=== PATIENT | female | born 1935 | race Caucasian/White ===

== ENCOUNTER 2017-06-16 19:26 | Inpatient (IN) | payer OTHER ==
[~2017-06-16] VITALS: Ht 160 cm; Wt 100.0 kg
[~2017-06-16 19:26] MED LIST: ASPI-676 PO; BENA40TA41 PO; FURO40TA4 PO; GLIP-95 PO; METO-448 PO; PANT40TA3 PO; PRAV20TA63 PO; SITA50TA2 PO
[2017-06-16] MEDS ORDERED: ONDANSETRON 4 MG INJ IV STA ×2 (20:17→23:22)
[2017-06-16] MEDS ORDERED: HYDROmorphONE 1 MG/ML SYG IV STA ×2 (20:17→23:22)
--- NOTE | 2017-06-16 20:24 | ERA ---
ER Documentation Chief Complaint Date/Time DATE: 06/16/17 TIME: 20:21 Chief Complaint L leg pain s/p mechanical fall yesterday, unable to bear weight HPI This is an 81-year-old female who fell at 2 AM when she was getting up to go to the bathroom. She says her left leg gave out and she fell onto her left hip. Denies any syncope or loss of consciousness denies headache or neck pain. She has a roommate that helped her get back into bed. She is unable to bear weight or walk today. She says the pain is sharp located in the left hip and worse with movement. Denies any abdominal pain chest pain or other injuries. ROS All systems reviewed and are negative except as per history of present illness. Medications Home Meds Reported Medications Benazepril Hcl* (Benazepril Hcl*) 40 Mg Tablet, 40 MG PO DAILY 01/13/13 Pravastatin Sodium* (Pravastatin Sodium*) 20 Mg Tablet, 20 MG PO DAILY 01/13/13 Sitagliptin* (Januvia*) 50 Mg Tablet, 50 MG PO HS 01/13/13 Aspirin (Aron Child) 81 Mg Chew, 81 MG PO DAILY 01/13/13 Metoprolol Tartrate* (Lopressor*) 25 Mg Tab, 25 MG PO DAILY 01/13/13 Furosemide (Lasix) 40 Mg Tab, 40 MG PO DAILY 01/13/13 Pantoprazole* (Protonix*) 40 Mg Tablet.dr, 40 MG PO DAILY 01/13/13 Glipizide* (Glipizide*) 10 Mg Tablet, 10 MG PO BID 01/13/13 Allergies Allergies: Coded Allergies: No Known Allergy (Unverified , 01/13/13) PMhx/Soc History of Surgery: No Anesthesia Reaction: No Hx Neurological Disorder: No Hx Respiratory Disorders: No Hx Cardiac Disorders: No Hx Psychiatric Problems: No Hx Miscellaneous Medical Probl: No Hx Alcohol Use: No Hx Substance Use: No Hx Tobacco Use: No FmHx Family History: No coronary disease Physical Exam Vitals Vital Signs Date Time Temp Pulse Resp B/P Pulse Ox O2 Delivery O2 Flow Rate FiO2 06/16/17 22:02 98.2 94 20 164/88 96 Nasal Cannula 2.0 06/16/17 19:32 98.4 105 18 113/59 98 Physical Exam Const: Well-developed, well-nourished Head: Atraumatic, normocephalic Eyes: Normal Conjunctiva, PERRLA, EOMI, normal sclera, no nystagmus ENT: Normal External Ears, Nose and Mouth, moist mucus membranes. Neck: Full range of motion. No meningismus, no lymphadenopathy. Resp: Clear to auscultation bilaterally, no wheezing, rhonchi, rales Cardio: Regular rate and rhythm, no murmurs, S1 S2 present Abd: Soft, non tender x 4, non distended. Normal bowel sounds, no guarding or rebound, no pulsitile abdominal masses or bruits Skin: No petechiae or rashes, no ecchymosis , no maculopapular rash Back: No midline or flank tenderness Ext: No cyanosis, or edema, FROM x 3, there is moderate to severe pain in the left hip with any attempted range of motion the left leg is shortened and externally rotated normal inspection, neurovascularly intact x 4 Neur: Awake and alert, STR 5/5 x 4, sensation intact x 4, no focal findings, cerebellum intact Psych: Normal Mood and Affect Result Diagram: 06/16/17 2100 06/16/17 2100 Results 24 hrs Laboratory Tests Test 06/16/17 21:00 White Blood Count 12.610^3/ul Red Blood Count 4.0510^6/ul Hemoglobin 12.0g/dl Hematocrit 36.9% Mean Corpuscular Volume 91.1fl Mean Corpuscular Hemoglobin 29.6pg Mean Corpuscular Hemoglobin Concent 32.5g/dl Red Cell Distribution Width 14.1% Platelet Count 10004^3/UL Mean Platelet Volume 10.6fl Neutrophils % 82.6% Lymphocytes % 8.6% Monocytes % 7.9% Eosinophils % 0.0% Basophils % 0.4% Nucleated Red Blood Cells % 0.0/100WBC Neutrophils # (Manual) 10.410^3/ul Lymphocytes # 1.110^3/ul Monocytes # 1.010^3/ul Eosinophils # 0.010^3/ul Basophils # 0.110^3/ul Nucleated Red Blood Cells # 0.010^3/ul Prothrombin Time 19.2Sec Prothrombin Time Ratio 1.5 INR International Normalized Ratio 1.60 Activated Partial Thromboplast Time 24.1Sec Sodium Level 141mmol/L Potassium Level 4.1mmol/L Chloride Level 104mmol/L Carbon Dioxide Level 25mmol/L Anion Gap 16 Blood Urea Nitrogen 24mg/dl Creatinine 2.06mg/dl Glucose Level 112mg/dl Calcium Level 8.8mg/dl Current Medications Medications (Trade) Dose Ordered Sig/Raghavendra Route PRN Reason Start Time Stop Time Status Last Admin Dose Admin Hydromorphone HCl (Dilaudid) 1 mg ONCE STAT IV 06/16/17 20:17 06/16/17 20:19 DC 06/16/17 21:14 Ondansetron HCl (Zofran Inj) 4 mg ONCE STAT IV 06/16/17 20:17 06/16/17 20:19 DC 06/16/17 21:14 Procedures/MDM PROCEDURE: XR Chest. CLINICAL INDICATION: Trauma, pain TECHNIQUE: Single frontal view of the chest was obtained COMPARISON: 01/13/2013 FINDINGS: There is hypoinflation of the lungs. This along with portable AP technique accentuates the size of the cardiomediastinal silhouette. The patient is mildly rotated to the left. Ectasia and tortuosity of the thoracic aorta is again apparent. Calcification in the aortic arch. Enlargement of the cardiac silhouette is again seen. There is minimal prominence of the lung interstitium likely minimal chronic changes.. There is bibasilar atelectasis. ECG leads projected over the chest. No definite pneumothorax or pleural effusion is seen. IMPRESSION: Hypoinflation lungs and bibasilar atelectasis. Enlargement of cardiac silhouette again seen. Please see above. RPTAT: HJES .Byron Hendricks MD, MD Date Time Electronically viewed and signed by .Byron Hendricks MD, MD on 06/16/2017 21:37 .S/ CC: CHELSEA GALINDO DO PROCEDURE: XR Hip. CLINICAL INDICATION: Trauma to the left hip. TECHNIQUE: AP and frog lateral views of the left hip were performed. COMPARISON: None. FINDINGS: Comminuted intratrochanteric fracture of the left hip. The soft tissues are unremarkable. IMPRESSION: Comminuted intertrochanteric fracture left hip. RPTAT: [facility] Soraida Schilling Physician Date Time Electronically viewed and signed by Soraida Schilling Physician on 06/16/2017 21:15 RS/ CC: CHELSEA GALINDO DO Patient has a fractured left hip. I paged Dr. Hobbs who is on-call for orthopedics. Will admit to panel for surgical clearance EKG: Rate/Rhythm: Normal sinus rhythm with premature supraventricular complexes QRS, ST, QT: NORMAL CT, QRS, QT] Impression: NORMAL EKG Departure Diagnosis: Primary Impression: Hip fracture, left Qualified Code: S72.002A - Closed fracture of left hip, initial encounter Condition: Stable CHELSEA GALINDO DO Jun 16, 2017 20:24
--- NOTE | 2017-06-16 21:15 | RADRPT ---
PROCEDURE: XR Hip. CLINICAL INDICATION: Trauma to the left hip. TECHNIQUE: AP and frog lateral views of the left hip were performed. COMPARISON: None. FINDINGS: Comminuted intratrochanteric fracture of the left hip. The soft tissues are unremarkable. IMPRESSION: Comminuted intertrochanteric fracture left hip. RPTAT: [facility] Physician Nick Date Time Electronically viewed and signed by Physician Nick on 06/16/2017 21:15 RS/
[2017-06-16 21:17] LABS: BASOPHIL # 0.1 10^3/ul (0.0-0.1); BASOPHILS % 0.4 % (0.0-2.0); HEMATOCRIT 36.9 % (37.0-47.0); LYMPHOCYTES # 1.1 10^3/ul (0.8-2.9); LYMPHOCYTES % 8.6 % (15.0-51.0); MEAN CORPUSCULAR HEMOGLOBIN 29.6 pg (29.0-33.0); MEAN CORPUSCULAR HGB CONC 32.5 g/dl (32.0-37.0); MEAN CORPUSCULAR VOLUME 91.1 fl (82.0-101.0); MEAN PLATELET VOLUME 10.6 fl (7.4-10.4); MONOCYTES % 7.9 % (0.0-11.0); NEUTROPHILS % 82.6 % (39.0-77.0); PLATELET COUNT 207 10^3/UL (140-415); RED BLOOD COUNT 4.05 10^6/ul (4.20-5.40); RED CELL DISTRIBUTION WIDTH 14.1 % (11.5-14.5); WHITE BLOOD COUNT 12.6 10^3/ul (4.8-10.8)
[2017-06-16 21:33] LABS: INR 1.6; PARTIAL THROMBOPLASTIN TIME 24.1 Sec (25.0-35.0); PROTIME 19.2 Sec (12.2-14.2); PT RATIO 1.5
[2017-06-16 21:35] LABS: CALCIUM 8.8 mg/dl (8.4-10.2); CREATININE 2.06 mg/dl (0.44-1.00); POTASSIUM 4.1 mmol/L (3.5-5.1)
--- NOTE | 2017-06-16 21:37 | RADRPT ---
PROCEDURE: XR Chest. CLINICAL INDICATION: Trauma, pain TECHNIQUE: Single frontal view of the chest was obtained COMPARISON: 01/13/2013 FINDINGS: There is hypoinflation of the lungs. This along with portable AP technique accentuates the size of the cardiomediastinal silhouette. The patient is mildly rotated to the left. Ectasia and tortuosit y of the thoracic aorta is again apparent. Calcification in the aortic arch. Enlargement of the ca rdiac silhouette is again seen. There is minimal prominence of the lung interstitium likely minimal chronic changes.. There is bibasilar atelectasis. ECG leads projected over the chest. No definite pneumothorax or pleural effusion is seen. IMPRESSION: Hypoinflation lungs and bibasilar atelectasis. Enlargement of cardiac silhouette again seen. Pleas e see above. RPTAT: HJES .Byron Hendricks MD, Date Time Electronically viewed and signed by .Byron Hendricks MD, on 06/16/2017 21:37 .S/
[2017-06-16] MEDS ORDERED: SOD CHLORIDE 0.9% 1,000 ML IV SCH (22:14)
[2017-06-16] MEDS ORDERED: ACETAMINOPHEN 325 MG TAB PO PRN (22:30)
[2017-06-16] MEDS ORDERED: ONDANSETRON 4 MG INJ IV PRN (22:30)
[2017-06-16 23:18] VITALS: TEMP 98.1
[2017-06-17 00:26] VITALS: BP 135/61; RESP 16
[2017-06-17 00:40] VITALS: Ht 160 cm; Wt 100.0 kg
[2017-06-17] MEDS ORDERED: ONDANSETRON 4 MG INJ IV PRN (01:00)
[2017-06-17] MEDS ORDERED: ACETAMINOPHEN 325 MG TAB PO PRN (01:00)
[2017-06-17] MEDS ORDERED: ACCU-CHEK XX SCH ×3 (02:00)
[2017-06-17 02:09] VITALS: BP 142/73; RESP 16
[2017-06-17 04:28] VITALS: BP 107/57; PULSE 53; RESP 20
[2017-06-17] MEDS: morphine 4 MG/ML VIAL IV PRN ×3 (04:32→12:42)
[2017-06-17] MEDS: PANTOPRAZOLE (EC) 40 MG TAB PO SCH (06:12)
[2017-06-17 07:48] VITALS: BP 152/67; RESP 18
[2017-06-17] MEDS: INSULIN ASPART [NOVOLOG] 3 ML PEN SC SCH ×4 (07:50→20:38)
[2017-06-17] MEDS ORDERED: INSULIN GLARGINE [LANtus] 3 ML PEN SC SCH ×2 (08:00)
[2017-06-17] MEDS: FUROSEMIDE 40 MG TAB PO SCH (08:24)
[2017-06-17] MEDS: METOPROLOL 25 MG TAB PO SCH (08:25)
[2017-06-17] MEDS: BENAZEPRIL 40 MG TAB PO SCH (08:25)
--- NOTE | 2017-06-17 09:00 | HP ---
Date/Time of Note Date/Time of Note DATE: 06/17/17 TIME: 08:56 Assessment/Plan VTE Prophylaxis VTE Prophylaxis Intervention: SCD's Lines/Catheters IV Catheter Type (from Nrs): Saline Lock Assessment/Plan Assessment/Plan 1. Left hip fracture, status post mechanical fall -Pain management -Awaiting orthopedic evaluation -Physical therapy when cleared by Ortho 2. Hypertension -Continue meds with adjustment as needed 3. Diabetes -Insulin while in-house his adjustment as needed 4. CKD -Monitor kidney function closely and avoid nephrotoxins 5. Dyslipidemia -Continue statin HPI/ROS Admit Date/Time Admit Date/Time Jun 16, 2017 at 22:16 Hx of Present Illness This is an 81-year-old female with a history of hypertension, diabetes, dyslipidemia, CKD who presented to the emergency department for left hip pain. Patient had a ground-level fall and when she came in the ER she was found to have a left hip fracture. Initial vitals were within normal limits. Labs shows a creatinine of 2, otherwise basic labs within acceptable range. Chest x- ray with bibasilar atelectasis. . PMH/Family/Social Past Medical History Medical History: diabetes, high cholesterol, hypertension, renal disease Social History Alcohol Use: none Smoking Status: Never smoker Drug Use: none Exam/Review of Systems Vital Signs Vitals Vital Signs Date Time Temp Pulse Resp B/P Pulse Ox O2 Delivery O2 Flow Rate FiO2 06/17/17 07:48 97.8 80 18 152/67 96 06/17/17 04:28 Room Air 06/16/17 23:18 2.0 Intake and Output 06/16/17 06/16/17 06/17/17 15:00 23:00 07:00 Intake Total 700 ml Balance 700 ml Exam Constitutional: other (No acute distress) Head: atraumatic, normocephalic Eyes: EOMI, PERRL Respiratory: clear to auscultation, normal air movement Cardiovascular: nl pulses, regular rate and rhythm Gastrointestinal: non-tender, soft Musculoskeletal: other (Left hip tenderness) Extremities: normal pulses Labs Result Diagram: 06/16/17 2100 06/16/17 2100 Medications Medications Current Medications Sodium Chloride (NS) 1,000 ml @ 80 mls/hr [id number] IV ; Start 06/16/17 at 22:14; Stop 06/17/17 at 10:43 Benazepril HCl (Lotensin) 40 mg DAILY PO Last administered on 06/17/17 08:25; Admin Dose 40 MG; Start 06/17/17 at 09:00 Furosemide (Lasix) 40 mg DAILY PO Last administered on 06/17/17 08:24; Admin Dose 40 MG; Start 06/17/17 at 09:00 Metoprolol Tartrate (Lopressor) 25 mg DAILY PO Last administered on 06/17/17 08 :25; Admin Dose 25 MG; Start 06/17/17 at 09:00 Pantoprazole (Protonix Tab) 40 mg DAILY@06 PO Last administered on 06/17/17 06: 12; Admin Dose 40 MG; Start 06/17/17 at 06:00 Atorvastatin Calcium (Lipitor) 20 mg HS PO ; Start 06/17/17 at 21:00 Morphine Sulfate (morphine) 3 mg Q4H PRN IV PAIN LEVEL 6-10 Last administered on 06/17/17 08:21; Admin Dose 3 MG; Start 06/17/17 at 01:00 Ondansetron HCl (Zofran Inj) 4 mg Q6H PRN IV NAUSEA AND/OR VOMITING; Start 06/17 at 01:00 Acetaminophen (Tylenol Tab) 650 mg Q6H PRN PO PAIN AND OR ELEVATED TEMP; Start 06/17/17 at 01:00 Insulin Glargine (Lantus) 10 unit DAILY@08 SC ; Start 06/17/17 at 08:00 Diagnostic Test (Pha) (Accu-Chek) 1 ea 02 XX Last administered on 06/17/17 02: 00; Admin Dose 1 EA; Start 06/17/17 at 02:00 Diagnostic Test (Pha) (Accu-Chek) 1 ea 02 XX Last administered on 06/17/17 02: 00; Admin Dose 1 EA; Start 06/17/17 at 02:00 DESI JACK MD Jun 17, 2017 09:00
--- NOTE | 2017-06-17 15:24 | PN ---
Date/Time of Note Date/Time of Note DATE: 06/17/17 TIME: 15:16 Assessment/Plan VTE Prophylaxis VTE Prophylaxis Intervention: SCD's Lines/Catheters IV Catheter Type (from Nrsg): Saline Lock Assessment/Plan Assessment/Plan 81 yo F with pmhx DM2, CKD here for L hip pain following mechanical fall at home found to have a comminuted intertrochanteric fracture of her left hip. PLAN #Hip fracture: ortho to see Given pt's excellent preoperative functional status, no compelling indication for further preoperative testing for this intermediate risk surgical intervention #CKD, DM2, HTN: cut home lantus in half in case pt made NPO for procedure DVT prophx PT eval pending ortho eval Subjective 24 Hr Interval Summary Free Text/Dictation Pt states she has never had a heart attack or stroke and has no known CHF. States she is able to climb a flight of stairs without stopping and can walk several blocks (or was able to prior to this hip fracture) Exam/Review of Systems Vital Signs Vitals Vital Signs Date Time Temp Pulse Resp B/P Pulse Ox O2 Delivery O2 Flow Rate FiO2 06/17/17 07:48 97.8 80 18 152/67 96 06/17/17 04:28 Room Air 06/16/17 23:18 2.0 Intake and Output 06/16/17 06/16/17 06/17/17 14:59 22:59 06:59 Intake Total 700 ml Balance 700 ml Exam nad no mrg lungs clear abd soft no rashes Results Result Diagram: 06/16/17 2100 06/16/17 2100 Results 24 hrs Laboratory Tests Test 06/16/17 21:00 06/17/17 01:33 06/17/17 08:06 06/17/17 12:46 White Blood Count 12.6 H Red Blood Count 4.05 L Hemoglobin 12.0 Hematocrit 36.9 L Mean Corpuscular Volume 91.1 Mean Corpuscular Hemoglobin 29.6 Mean Corpuscular Hemoglobin Concent 32.5 Red Cell Distribution Width 14.1 Platelet Count 207 Mean Platelet Volume 10.6 H Neutrophils % 82.6 H Lymphocytes % 8.6 L Monocytes % 7.9 Eosinophils % 0.0 Basophils % 0.4 Nucleated Red Blood Cells % 0.0 Neutrophils # (Manual) 10.4 H Lymphocytes # 1.1 Monocytes # 1.0 H Eosinophils # 0.0 Basophils # 0.1 Nucleated Red Blood Cells # 0.0 Prothrombin Time 19.2 H Prothrombin Time Ratio 1.5 INR International Normalized Ratio 1.60 Activated Partial Thromboplast Time 24.1 L Sodium Level 141 Potassium Level 4.1 Chloride Level 104 Carbon Dioxide Level 25 Anion Gap 16 Blood Urea Nitrogen 24 H Creatinine 2.06 H Glucose Level 112 Calcium Level 8.8 Bedside Glucose 79 82 96 Medications Medications Current Medications Benazepril HCl (Lotensin) 40 mg DAILY PO Last administered on 06/17/17 08:25; Admin Dose 40 MG; Start 06/17/17 at 09:00 Furosemide (Lasix) 40 mg DAILY PO Last administered on 06/17/17 08:24; Admin Dose 40 MG; Start 06/17/17 at 09:00 Metoprolol Tartrate (Lopressor) 25 mg DAILY PO Last administered on 06/17/17 08 :25; Admin Dose 25 MG; Start 06/17/17 at 09:00 Pantoprazole (Protonix Tab) 40 mg DAILY@06 PO Last administered on 06/17/17 06: 12; Admin Dose 40 MG; Start 06/17/17 at 06:00 Atorvastatin Calcium (Lipitor) 20 mg HS PO ; Start 06/17/17 at 21:00 Morphine Sulfate (morphine) 3 mg Q4H PRN IV PAIN LEVEL 6-10 Last administered on 06/17/17 12:42; Admin Dose 3 MG; Start 06/17/17 at 01:00 Ondansetron HCl (Zofran Inj) 4 mg Q6H PRN IV NAUSEA AND/OR VOMITING; Start 06/17 at 01:00 Acetaminophen (Tylenol Tab) 650 mg Q6H PRN PO PAIN AND OR ELEVATED TEMP; Start 06/17/17 at 01:00 Insulin Glargine (Lantus) 10 unit DAILY@08 SC Last administered on 06/17/17 09: 52; Admin Dose 10 UNIT; Start 06/17/17 at 08:00 Diagnostic Test (Pha) (Accu-Chek) 1 ea 02 XX Last administered on 06/17/17 02: 00; Admin Dose 1 EA; Start 06/17/17 at 02:00 Diagnostic Test (Pha) (Accu-Chek) 1 ea XX Last administered on 06/17/17 02: 00; Admin Dose 1 EA; Start 06/17/17 at 02:00 TOYA MEJIA MD Jun 17, 2017 15:24
[2017-06-17 19:48] VITALS: BP 109/62; RESP 18
[2017-06-17] MEDS: ATORVASTATIN 20 MG TAB PO SCH (20:36)
[2017-06-17] MEDS ORDERED: GLUCAGON 1 MG INJ IM PRN (21:30)
[2017-06-17] MEDS ORDERED: DEXTROSE 50% 50 ML SYRINGE IV PRN ×2 (21:30)
[2017-06-17] MEDS ORDERED: GLUCOSE GEL 15 GRAM TUBE BUCCAL PRN (21:30)
[2017-06-17] MEDS ORDERED: GLUCOSE GEL 15 GRAM TUBE PO PRN ×2 (21:30)
[2017-06-18] VITALS (25 sets, daily range): BP systolic 80–134; BP diastolic 44–62; PULSE 62–74; RESP 13–20
[2017-06-18] MEDS: SOD CHLORIDE 0.9% 1,000 ML IV SCH ×2 (00:08→12:39)
[2017-06-18] MEDS: INSULIN ASPART [NOVOLOG] 3 ML PEN SC SCH ×6 (01:00→21:00)
--- NOTE | 2017-06-18 01:08 | CONS ---
DATE OF ADMISSION: 06/16/2017 DATE OF CONSULTATION: 06/17/2017 TYPE OF CONSULTATION: Orthopedic Surgery HISTORY OF PRESENT ILLNESS: The patient is an 81-year-old female who was admitted on 06/16/2017 when she was brought into the Emergency Room because of the painful limit of motion involving her left hip following a ground level fall. According to the patient, she was in the process of getting out of her bed when she lost her balance and fell landing on her left hip. Following the fall, she was not able to stand up or walk even though she was ambulatory sometimes with a cane and sometimes with a walker prior to the fall. PAST MEDICAL HISTORY: She is known to have history of hypertension, diabetes, dyslipidemia, and a history of chronic kidney disease. PHYSICAL EXAMINATION: My examination revealed an 81-year-old rather obese female who was not in any acute distress. She was afebrile. There was a tenderness and swelling around the left hip. Range of motion of the left hip was not tested because of the obvious pain. There was slight shortening and external rotation of the left lower extremity. There was no obvious neurovascular compromise involving the left lower extremity. DIAGNOSTIC DATA: X-rays of the left hip revealed a severely comminuted intertrochanteric fracture of the left hip which seems to be extremely unstable. DIAGNOSTIC IMPRESSION: Severely comminuted intertrochanteric fracture with subtrochanteric component, very unstable. TREATMENT PLAN: To surgery for open reduction and internal fixation at earliest convenience. Dictated By: In Sherry Hobbs MD /maximino/bill /Document#: [id number]
[2017-06-18] MEDS: PANTOPRAZOLE (EC) 40 MG TAB PO SCH (05:02)
[2017-06-18 05:32] LABS: BASOPHIL # 0.1 10^3/ul (0.0-0.1); BASOPHILS % 1.1 % (0.0-2.0); EOSINOPHILS # 0.3 10^3/ul (0.0-0.5); EOSINOPHILS % 2.8 % (0.0-7.0); HEMATOCRIT 32.8 % (37.0-47.0); LYMPHOCYTES % 19.3 % (15.0-51.0); MEAN CORPUSCULAR HEMOGLOBIN 28.6 pg (29.0-33.0); MEAN CORPUSCULAR HGB CONC 30.5 g/dl (32.0-37.0); MEAN CORPUSCULAR VOLUME 93.7 fl (82.0-101.0); MEAN PLATELET VOLUME 11.1 fl (7.4-10.4); MONOCYTE # 0.8 10^3/ul (0.3-0.9); MONOCYTES % 8.3 % (0.0-11.0); PLATELET COUNT 174 10^3/UL (140-415); RED CELL DISTRIBUTION WIDTH 14.3 % (11.5-14.5); WHITE BLOOD COUNT 10.1 10^3/ul (4.8-10.8)
[2017-06-18 05:47] LABS: CREATININE 3.32 mg/dl (0.44-1.00); POTASSIUM 4.8 mmol/L (3.5-5.1)
[2017-06-18 05:54] LABS: INR 1.03; PROTIME 13.5 Sec (12.2-14.2); PT RATIO 1.1
[2017-06-18] MEDS: FUROSEMIDE 40 MG TAB PO SCH (09:00)
[2017-06-18] MEDS: METOPROLOL 25 MG TAB PO SCH (09:56)
[2017-06-18] MEDS: BENAZEPRIL 40 MG TAB PO SCH (09:57)
[2017-06-18] MEDS: INSULIN GLARGINE [LANtus] 3 ML PEN SC SCH (10:01)
--- NOTE | 2017-06-18 15:58 | PN ---
Date/Time of Note Date/Time of Note DATE: 06/18/17 TIME: 15:57 Assessment/Plan VTE Prophylaxis VTE Prophylaxis Intervention: SCD's Lines/Catheters IV Catheter Type (from Nrsg): Peripheral IV Assessment/Plan Assessment/Plan 81 yo F with pmhx DM2, CKD here for L hip pain following mechanical fall at home found to have a comminuted intertrochanteric fracture of her left hip. PLAN #Hip fracture: to OR tonight #MARIANA on CKD: fluids started overnight, recheck Cr in AM. baseline 2. if still elevated, check urine studies #DM2, HTN: cut home lantus in half in case pt made NPO for procedure DVT prophx PT eval pending ortho eval Subjective 24 Hr Interval Summary Free Text/Dictation Sleeping this AM Exam/Review of Systems Vital Signs Vitals Vital Signs Date Time Temp Pulse Resp B/P Pulse Ox O2 Delivery O2 Flow Rate FiO2 06/18/17 15:42 98.8 63 14 134/62 98 Nasal Cannula 2.0 Intake and Output 06/17/17 06/17/17 06/18/17 15:00 23:00 07:00 Intake Total 780 ml 1100 ml Balance 780 ml 1100 ml Exam nad no mrg lungs clear abd soft no rashes Cr increase noted Results Result Diagram: 06/18/17 0445 06/18/17 0442 Results 24 hrs Laboratory Tests Test 06/17/17 16:59 06/17/17 20:37 06/18/17 01:02 06/18/17 04:42 Bedside Glucose 88 103 137 Sodium Level 139 Potassium Level 4.8 Chloride Level 105 Carbon Dioxide Level 27 Anion Gap 12 Blood Urea Nitrogen 49 #H Creatinine 3.32 #H Glucose Level 133 Calcium Level 8.0 L Test 06/18/17 04:44 06/18/17 04:45 06/18/17 09:39 06/18/17 13:33 Bedside Glucose 135 140 120 White Blood Count 10.1 Red Blood Count 3.50 L Hemoglobin 10.0 L Hematocrit 32.8 L Mean Corpuscular Volume 93.7 Mean Corpuscular Hemoglobin 28.6 L Mean Corpuscular Hemoglobin Concent 30.5 L Red Cell Distribution Width 14.3 Platelet Count 174 Mean Platelet Volume 11.1 H Neutrophils % 68.0 Lymphocytes % 19.3 Monocytes % 8.3 Eosinophils % 2.8 Basophils % 1.1 Nucleated Red Blood Cells % 0.0 Neutrophils # (Manual) 6.9 Lymphocytes # 2.0 Monocytes # 0.8 Eosinophils # 0.3 Basophils # 0.1 Nucleated Red Blood Cells # 0.0 Prothrombin Time 13.5 # Prothrombin Time Ratio 1.1 INR International Normalized Ratio 1.03 Activated Partial Thromboplast Time 28.0 Medications Medications Current Medications Benazepril HCl (Lotensin) 40 mg DAILY PO Last administered on 06/18/17 09:57; Admin Dose 40 MG; Start 06/17/17 at 09:00 Furosemide (Lasix) 40 mg DAILY PO Last administered on 06/17/17 08:24; Admin Dose 40 MG; Start 06/17/17 at 09:00 Metoprolol Tartrate (Lopressor) 25 mg DAILY PO Last administered on 06/18/17 09 :56; Admin Dose 25 MG; Start 06/17/17 at 09:00 Pantoprazole (Protonix Tab) 40 mg DAILY@06 PO Last administered on 06/17/17 06: 12; Admin Dose 40 MG; Start 06/17/17 at 06:00 Atorvastatin Calcium (Lipitor) 20 mg HS PO Last administered on 06/17/17 20:36 ; Admin Dose 20 MG; Start 06/17/17 at 21:00 Morphine Sulfate (morphine) 3 mg Q4H PRN IV PAIN LEVEL 6-10 Last administered on 06/17/17 12:42; Admin Dose 3 MG; Start 06/17/17 at 01:00 Ondansetron HCl (Zofran Inj) 4 mg Q6H PRN IV NAUSEA AND/OR VOMITING; Start 06/17 at 01:00 Acetaminophen (Tylenol Tab) 650 mg Q6H PRN PO PAIN AND OR ELEVATED TEMP; Start 06/17/17 at 01:00 Insulin Glargine 5 unit 5 unit DAILY@08 SC Last administered on 06/18/17 10:01 ; Admin Dose 5 UNIT; Start 06/18/17 at 08:00 Sodium Chloride (NS) 1,000 ml @ 80 mls/hr [id number] IV Last administered on 12:39; Admin Dose 80 MLS/HR; Start 06/18/17 at 00:00 Insulin Aspart (Novolog Insulin Pen) NOVOLOG *MILD* ALGORI... Q4 SC ; Start 06/18 at 01:00 Miscellaneous Information 1 ea NOTE XX ; Start 06/17/17 at 21:30 Glucose (Glutose) 15 gm Q15M PRN PO DECREASED GLUCOSE; Start 06/17/17 at 21:30 Glucose (Glutose) 22.5 gm Q15M PRN PO DECREASED GLUCOSE; Start 06/17/17 at 21:30 Dextrose (D50w Syringe) 25 ml Q15M PRN IV DECREASED GLUCOSE; Start 06/17/17 at 21:30 Dextrose (D50w Syringe) 50 ml Q15M PRN IV DECREASED GLUCOSE; Start 06/17/17 at 21:30 Glucagon (Glucagen) 1 mg Q15M PRN IM DECREASED GLUCOSE; Start 06/17/17 at 21:30 Glucose (Glutose) 15 gm Q15M PRN BUCCAL DECREASED GLUCOSE; Start 06/17/17 at 21: 30 TOYA MEJIA MD Jun 18, 2017 15:58
[2017-06-18] MEDS: morphine 4 MG/ML VIAL IV PRN (17:33)
[2017-06-18] MEDS ORDERED: CEFAZOLIN 1 GM INJ ONE (19:15)
[2017-06-18] MEDS ORDERED: FENTAnyl 50 MCG/ML VIAL ONE (19:15)
[2017-06-18] MEDS ORDERED: PROPOFOL 40 ML ONE (19:15)
--- NOTE | 2017-06-18 19:21 | HPN ---
Date/Time of Note Date/Time of Note DATE: 06/18/17 TIME: 19:20 Interval H&P Admission Note Pt. seen H&P reviewed: No system changes REUBEN SQUIRES MD Jun 18, 2017 19:21
[2017-06-18] MEDS ORDERED: PHENYLephrine (100 MCG/ML) 5ML SYG ONE ×3 (19:33→19:57)
[2017-06-18] MEDS ORDERED: HETASTARCH 6% NACL 500 ML ONE (19:49)
[2017-06-18] MEDS ORDERED: PHENYLephrine 10 MG INJ ONE (19:58)
[2017-06-18] MEDS ORDERED: METOCLOPRAMIDE 10 MG INJ ONE (20:53)
[2017-06-18] MEDS ORDERED: ONDANSETRON 4 MG INJ ONE (20:53)
[2017-06-18] MEDS ORDERED: DEXAMETHASONE 4 MG/ML 1 ML INJ ONE (20:53)
[2017-06-18] MEDS: ATORVASTATIN 20 MG TAB PO SCH (21:00)
[2017-06-18] MEDS ORDERED: PROPOFOL 20 ML ONE ×2 (21:32→21:33)
[2017-06-18] MEDS ORDERED: POLYMYXIN/BACITRACIN 1L IRRIG ONE (21:33)
[2017-06-18] MEDS ORDERED: NALBUPHINE HCL (10 MG/1 ML) INJ IV PRN (22:00)
[2017-06-18] MEDS ORDERED: LABETALOL HCL 20MG INJ IV PRN (22:00)
[2017-06-18] MEDS ORDERED: FENTAnyl 50 MCG/ML VIAL IV PRN ×2 (22:00)
[2017-06-18] MEDS ORDERED: HYDROmorphONE (0.2 MG/ML) 10ML SYG IV PRN ×2 (22:00)
[2017-06-18] MEDS ORDERED: EPHEDrine SULFATE 50 MG/5 ML SYG IV PRN (22:00)
[2017-06-18] MEDS ORDERED: MEPERIDINE 25 MG INJ IV PRN (22:00)
[2017-06-18] MEDS ORDERED: METOCLOPRAMIDE 10 MG INJ IV PRN (22:00)
[2017-06-18] MEDS ORDERED: DIPHENHYDRAMINE 50 MG INJ IV PRN ×2 (22:00)
[2017-06-18] MEDS ORDERED: hydrALAzine 20 MG INJ IV PRN (22:00)
[2017-06-18] MEDS ORDERED: ALBUMIN HUMAN 5% 250 ML IV PRN (22:00)
[2017-06-18] MEDS ORDERED: NALOXONE (0.4 MG/ML) INJ IV PRN (22:00)
[2017-06-18] MEDS ORDERED: ONDANSETRON 4 MG INJ IV PRN (22:00)
[2017-06-18] MEDS ORDERED: morphine 2 MG INJ IV PRN (22:30)
[2017-06-18] MEDS ORDERED: NACL 0.9% 3 ML SYG IV SCH (22:30)
--- NOTE | 2017-06-18 22:36 | SIPON ---
Date/Time of Note Date/Time of Note DATE: 06/18/17 TIME: 22:31 Operative Report Preoperative Diagnosis intertrochanteric fracture of Rt. hip Postoperative Diagnosis same as preop Operation/Procedure Performed O.R.I.F.of Rt. hip fracture Surgeon: REUBEN SQUIRES MD Anesthesia Type: general Estimated Blood Loss: 50 - 100 ml's Transfusion Required: no Specimen: none Grafts/Implants gamma nail Complications: no REUBEN SQUIRES MD Jun 18, 2017 22:36
[2017-06-18 23:17] LABS: BASOPHIL # 0.1 10^3/ul (0.0-0.1); BASOPHILS % 0.7 % (0.0-2.0); EOSINOPHILS # 0.2 10^3/ul (0.0-0.5); EOSINOPHILS % 1.2 % (0.0-7.0); HEMATOCRIT 31.1 % (37.0-47.0); HEMOGLOBIN 9.6 g/dl (12.0-16.0); LYMPHOCYTES % 7.1 % (15.0-51.0); MEAN CORPUSCULAR HEMOGLOBIN 29.4 pg (29.0-33.0); MEAN CORPUSCULAR HGB CONC 30.9 g/dl (32.0-37.0); MEAN CORPUSCULAR VOLUME 95.4 fl (82.0-101.0); MEAN PLATELET VOLUME 10.6 fl (7.4-10.4); MONOCYTE # 0.6 10^3/ul (0.3-0.9); MONOCYTES % 4.3 % (0.0-11.0); NEUTROPHILS % 85.8 % (39.0-77.0); PLATELET COUNT 175 10^3/UL (140-415); RED BLOOD COUNT 3.26 10^6/ul (4.20-5.40); WHITE BLOOD COUNT 13.9 10^3/ul (4.8-10.8)
[2017-06-18 23:47] LABS: CALCIUM 7.8 mg/dl (8.4-10.2); CREATININE 2.96 mg/dl (0.44-1.00); POTASSIUM 4.9 mmol/L (3.5-5.1)
[2017-06-19] VITALS (10 sets, daily range): BP systolic 110–156; BP diastolic 49–78; PULSE 73–85; RESP 18–20
--- NOTE | 2017-06-19 00:30 | RADRPT ---
PROCEDURE: XR Hip. CLINICAL INDICATION: Postoperative examination. TECHNIQUE: Two views of the left hip. COMPARISON: None available. FINDINGS: A trochanteric femoral nail transfixes a comminuted intertrochanteric fracture of the left hip. The lesser trochanter fragment remains displaced. There are postoperative changes in the left leg soft t issues. Skin clarice project along the lateral thigh. IMPRESSION: 1. Status post internal fixation of intertrochanteric left hip fracture. RPTAT: HTAR .Brian Saba MD, Date Time Electronically viewed and signed by .Brian Saba MD, on 06/19/2017 00:30 .R/
[2017-06-19] MEDS: SOD CHLORIDE 0.9% 1,000 ML IV SCH ×4 (01:00→13:30)
[2017-06-19] MEDS: ACCU-CHEK XX SCH (01:44)
[2017-06-19] MEDS: CEFAZOLIN 1 GM/50 ML (PMX) 50 ML IVPB SCH ×3 (03:24→18:14)
--- NOTE | 2017-06-19 04:25 | OPR ---
DATE OF OPERATION: 06/18/2017 PREOPERATIVE DIAGNOSIS: Intertrochanteric fracture of the left hip. POSTOPERATIVE DIAGNOSIS: Intertrochanteric fracture of the left hip. OPERATIVE PROCEDURE: ANESTHESIA: General. SURGEON: Roosevelt Hobbs MD DESCRIPTION OF PROCEDURE: Under general anesthesia, the patient was placed in the supine position upon the fracture table. Utilizing fracture table and under fluoroscopic monitoring, manipulative reduction of the fracture was carried out until an acceptable alignment achieved. The usual prep and drape was done exposing the left hip and left thigh. The intertrochanteric area of the left hip was approached through the lateral longitudinal incision. The tip of the greater trochanter was identified and through this tip, guide pin was introduced into the intramedullary canal and a plane was opened using cannulated drills. A reamer guide was then introduced into the canal and after proper adjustment, measurement was made and it was my impression that a 32 cm long x 10 mm wide intramedullary naomi with the 125-degree angle was the proper choice. After reaming the intramedullary canal up to 11.5 mm, the selected intramedullary naomi was introduced into the intramedullary canal. After proper rotatory adjustment, the guide pin for the lag screw was properly position and the measurements revealed that the proper size will be 90 mm. After reaming of the guide pin, selected lag screw in the size of 90 mm was screwed in. Again, after proper adjustment, some compression at the fracture site was achieved and then the lag screw was properly locked. Finally, in other to stabilize the system, 1 distal locking screw in a stationary position was inserted. The patient tolerated the entire procedure very well and was sent to the recovery room in good condition. Dictated By: Roosevelt Hobbs MD /[email or web address]/bill /Document#: [id number]
[2017-06-19] MEDS: PANTOPRAZOLE (EC) 40 MG TAB PO SCH (05:05)
[2017-06-19] MEDS: HYDROCODONE/APAP (5/325) TAB PO PRN ×2 (05:05→17:50)
[2017-06-19 06:12] LABS: CALCIUM 7.6 mg/dl (8.4-10.2); CREATININE 2.49 mg/dl (0.44-1.00); POTASSIUM 5.1 mmol/L (3.5-5.1)
--- NOTE | 2017-06-19 06:57 | RADRPT ---
PROCEDURE: Intraoperative fluoroscopy CLINICAL INDICATION: Left hip fracture TECHNIQUE: 192.1 seconds of fluoroscopy time was used during open reduction and internal fixation o f left hip fracture COMPARISON: None FINDINGS: Single fluoroscopic images submitted and shows nail and screw fixation of intertrochanteric fracture of the left hip. Medially displaced lesser trochanter fragment is seen. IMPRESSION: Intraoperative fluoroscopy during open reduction and internal fixation of left hip fracture. RPTAT: HLBE Tavia Laguerre Physician Date Time Electronically viewed and signed by Tavia Laguerre Physician on 06/19/2017 06:15 LE/
[2017-06-19] MEDS: FUROSEMIDE 40 MG TAB PO SCH (08:31)
[2017-06-19] MEDS: BENAZEPRIL 40 MG TAB PO SCH (08:31)
[2017-06-19] MEDS: INSULIN ASPART [NOVOLOG] 3 ML PEN SC SCH ×4 (08:33→21:40)
[2017-06-19] MEDS: INSULIN GLARGINE [LANtus] 3 ML PEN SC SCH (08:34)
[2017-06-19] MEDS: ENOXAPARIN 30 MG/0.3 ML SYG SC SCH (08:35)
[2017-06-19] MEDS: METOPROLOL 25 MG TAB PO SCH (08:37)
--- NOTE | 2017-06-19 09:24 | OPPN ---
Date/Time of Note Date/Time of Note DATE: 06/19/17 TIME: 09:24 Post-Anesthesia Notes Post-Anesthesia Note Last documented vital signs Vital Signs Date Time Temp Pulse Resp B/P Pulse Ox O2 Delivery O2 Flow Rate FiO2 06/19/17 08:01 98.3 83 20 116/54 99 06/19/17 05:20 Nasal Cannula 2.0 Activity: WNL Respiratory function: WNL Cardiovascular function: WNL Mental status: Baseline Pain reasonably controlled: Yes Hydration appropriate: Yes Nausea/Vomiting absent: Yes LITTLE ANDERSON MD Jun 19, 2017 09:24
--- NOTE | 2017-06-19 14:47 | PN ---
Date/Time of Note Date/Time of Note DATE: 06/19/17 TIME: 14:41 Assessment/Plan VTE Prophylaxis VTE Prophylaxis Intervention: SCD's Lines/Catheters IV Catheter Type (from Nrsg): Peripheral IV Urinary Cath still in place: Yes Reason Cath still needed: other (indicate) (as ortho rec?) Assessment/Plan Assessment/Plan 81 yo F with pmhx DM2, CKD here for L hip pain following mechanical fall at home found to have a comminuted intertrochanteric fracture of her left hip sp surgical repair 9.5 PLAN #Hip fracture: sp surgical repair 9.5 #MARIANA on CKD: stop fluids as back on diet, recheck Cr in AM. baseline 2. if still elevated, check urine studies #DM2, HTN: increase lantus back to 10 units q daily DVT prophx ARU eval per PT request Subjective 24 Hr Interval Summary Free Text/Dictation Told me she's in pain but then doesnt take the pain meds offered by the nurse Exam/Review of Systems Vital Signs Vitals Vital Signs Date Time Temp Pulse Resp B/P Pulse Ox O2 Delivery O2 Flow Rate FiO2 06/19/17 08:01 98.3 83 20 116/54 99 06/19/17 08:00 Nasal Cannula 2.0 Intake and Output 06/18/17 06/18/17 06/19/17 15:00 23:00 07:00 Intake Total 550 ml 600 ml 870 ml Output Total 1650 ml 700 ml Balance 550 ml -1050 ml 170 ml Exam nad no mrg lungs clear abd soft no rashes Results Result Diagram: 06/18/17 2306 06/19/17 0447 Results 24 hrs Laboratory Tests Test 06/18/17 16:37 06/18/17 22:59 06/18/17 23:06 06/19/17 04:47 Bedside Glucose 147 139 White Blood Count 13.9 #H Red Blood Count 3.26 L Hemoglobin 9.6 L Hematocrit 31.1 L Mean Corpuscular Volume 95.4 Mean Corpuscular Hemoglobin 29.4 Mean Corpuscular Hemoglobin Concent 30.9 L Red Cell Distribution Width 14.0 Platelet Count 175 Mean Platelet Volume 10.6 H Neutrophils % 85.8 H Lymphocytes % 7.1 L Monocytes % 4.3 Eosinophils % 1.2 Basophils % 0.7 Nucleated Red Blood Cells % 0.0 Neutrophils # (Manual) 11.9 H Lymphocytes # 1.0 Monocytes # 0.6 Eosinophils # 0.2 Basophils # 0.1 Nucleated Red Blood Cells # 0.0 Sodium Level 140 141 Potassium Level 4.9 5.1 Chloride Level 110 112 H Carbon Dioxide Level 25 20 L Anion Gap 10 14 Blood Urea Nitrogen 49 H 51 H Creatinine 2.96 H 2.49 H Glucose Level 125 178 Calcium Level 7.8 L 7.6 L Test 06/19/17 08:28 06/19/17 12:40 Bedside Glucose 232 H 309 H Medications Medications Current Medications Benazepril HCl (Lotensin) 40 mg DAILY PO Last administered on 06/19/17 08:31; Admin Dose 40 MG; Start 06/17/17 at 09:00 Furosemide (Lasix) 40 mg DAILY PO Last administered on 06/19/17 08:31; Admin Dose 40 MG; Start 06/17/17 at 09:00 Metoprolol Tartrate (Lopressor) 25 mg DAILY PO Last administered on 06/19/17 08 :37; Admin Dose 25 MG; Start 06/17/17 at 09:00 Pantoprazole (Protonix Tab) 40 mg DAILY@06 PO Last administered on 06/19/17 05: 05; Admin Dose 40 MG; Start 06/17/17 at 06:00 Atorvastatin Calcium (Lipitor) 20 mg HS PO Last administered on 06/17/17 20:36 ; Admin Dose 20 MG; Start 06/17/17 at 21:00 Morphine Sulfate (morphine) 3 mg Q4H PRN IV PAIN LEVEL 6-10 Last administered on 06/18/17 17:33; Admin Dose 2 MG; Start 06/17/17 at 01:00 Ondansetron HCl (Zofran Inj) 4 mg Q6H PRN IV NAUSEA AND/OR VOMITING; Start 06/17 at 01:00 Acetaminophen (Tylenol Tab) 650 mg Q6H PRN PO PAIN AND OR ELEVATED TEMP; Start 06/17/17 at 01:00 Insulin Glargine 5 unit 5 unit DAILY@08 SC Last administered on 06/19/17 08:34 ; Admin Dose 5 UNIT; Start 06/18/17 at 08:00 Sodium Chloride (NS) 1,000 ml @ 80 mls/hr [id number] IV Last administered on 12:39; Admin Dose 80 MLS/HR; Start 06/18/17 at 00:00 Miscellaneous Information 1 ea NOTE XX ; Start 06/17/17 at 21:30 Glucose (Glutose) 15 gm Q15M PRN PO DECREASED GLUCOSE; Start 06/17/17 at 21:30 Glucose (Glutose) 22.5 gm Q15M PRN PO DECREASED GLUCOSE; Start 06/17/17 at 21:30 Dextrose (D50w Syringe) 25 ml Q15M PRN IV DECREASED GLUCOSE; Start 06/17/17 at 21:30 Dextrose (D50w Syringe) 50 ml Q15M PRN IV DECREASED GLUCOSE; Start 06/17/17 at 21:30 Glucagon (Glucagen) 1 mg Q15M PRN IM DECREASED GLUCOSE; Start 06/17/17 at 21:30 Glucose 15 gm 15 gm Q15M PRN BUCCAL DECREASED GLUCOSE; Start 06/17/17 at 21:30 Sodium Chloride 1,000 ml @ 80 mls/hr [id number] IV Last administered on 06/19/17 05:08; Admin Dose 80 MLS/HR; Start 06/18/17 at 22:07 Cefazolin Sodium (Ancef 1 Gm/50 ml (Pmx)) 50 ml @ 100 mls/hr Q8H IVPB Last administered on 06/19/17 11:16; Admin Dose 100 MLS/HR; Start 06/19/17 at 03:00; Stop 06/19/17 at 19:29 Enoxaparin Sodium (Lovenox) 30 mg DAILY SC Last administered on 06/19/17 08:35 ; Admin Dose 30 MG; Start 06/19/17 at 09:00 Morphine Sulfate (morphine) 2 mg Q2H PRN IV pain; Start 06/18/17 at 22:30 Acetaminophen/ Hydrocodone Bitart ([place] (5/325)) 1 tab Q3H PRN PO PAIN Last administered on 06/19/17 05:05; Admin Dose 1 TAB; Start 06/18/17 at 22:30 Diagnostic Test (Pha) (Accu-Chek) 1 ea 02 XX ; Start 06/19/17 at 02:00 TOYA MEJIA MD Jun 19, 2017 14:47
--- NOTE | 2017-06-19 19:18 | RADRPT ---
Vent Rate: 84 bpm RR Interval: 0 msec NM Interval: 176 msec QRS Duration: 70 msec QT Interval: 384 msec QTC Interval: 453 msec P-R-T [place]: 13 - 22 - 57 degrees Normal sinus rhythm Normal ECG Electronically Signed By: Oliver Davis [id number]
[2017-06-19] MEDS: ATORVASTATIN 20 MG TAB PO SCH (21:19)
[2017-06-20 02:00] VITALS: BP_SYST 114; BP_DIAS 56; BP_DIAS 71; RESP 18
[2017-06-20] MEDS: ACCU-CHEK XX SCH (02:20)
[2017-06-20] MEDS: PANTOPRAZOLE (EC) 40 MG TAB PO SCH (05:11)
[2017-06-20 06:16] LABS: CALCIUM 7.9 mg/dl (8.4-10.2); CREATININE 3.1 mg/dl (0.44-1.00); POTASSIUM 4.7 mmol/L (3.5-5.1)
[2017-06-20 08:02] VITALS: BP 121/56; RESP 20
[2017-06-20] MEDS: INSULIN ASPART [NOVOLOG] 3 ML PEN SC SCH ×4 (09:04→20:51)
[2017-06-20] MEDS: INSULIN GLARGINE [LANtus] 3 ML PEN SC SCH (09:06)
[2017-06-20] MEDS: ENOXAPARIN 30 MG/0.3 ML SYG SC SCH (09:08)
[2017-06-20] MEDS: BENAZEPRIL 40 MG TAB PO SCH (09:14)
[2017-06-20] MEDS: FUROSEMIDE 40 MG TAB PO SCH (09:14)
[2017-06-20] MEDS: METOPROLOL 25 MG TAB PO SCH (09:15)
[2017-06-20] MEDS: HYDROCODONE/APAP (5/325) TAB PO PRN (10:56)
--- NOTE | 2017-06-20 13:00 | PN ---
Date/Time of Note Date/Time of Note DATE: 06/20/17 TIME: 12:55 Assessment/Plan VTE Prophylaxis VTE Prophylaxis Intervention: SCD's Lines/Catheters IV Catheter Type (from Nrsg): Saline Lock Urinary Cath still in place: Yes Reason Cath still needed: other (indicate) (as per ortho) Assessment/Plan Assessment/Plan Assessment/Plan 81 yo F with pmhx DM2, CKD here for L hip pain following mechanical fall at home found to have a comminuted intertrochanteric fracture of her left hip sp surgical repair 9.5 PLAN #Hip fracture: sp surgical repair 9.5 #MARIANA on CKD: stop fluids as back on diet, recheck Cr in AM. baseline 2. if still elevated, check urine studies #DM2, HTN: increased lantus back to 10 units q daily, may need to increase further DVT prophx ARU eval pending Subjective 24 Hr Interval Summary Free Text/Dictation Resting and without complaint this AM Exam/Review of Systems Vital Signs Vitals Vital Signs Date Time Temp Pulse Resp B/P Pulse Ox O2 Delivery O2 Flow Rate FiO2 06/20/17 08:02 98.2 73 20 121/56 99 06/20/17 08:00 2.0 06/19/17 20:00 Nasal Cannula Intake and Output 06/19/17 06/19/17 06/20/17 15:00 23:00 07:00 Intake Total 1030 ml 1060 ml 840 ml Output Total 800 ml 600 ml Balance 1030 ml 260 ml 240 ml Exam nad no mrg lungs clear abd soft no rashes Results Result Diagram: 06/18/17 2306 06/20/17 0518 Results 24 hrs Laboratory Tests Test 06/19/17 17:43 06/19/17 21:17 06/20/17 02:19 06/20/17 05:18 Bedside Glucose 255 H 263 H 229 H Sodium Level 137 Potassium Level 4.7 Chloride Level 108 Carbon Dioxide Level 23 Anion Gap 11 Blood Urea Nitrogen 68 H Creatinine 3.10 H Glucose Level 217 Hemoglobin A1c 6.9 H Calcium Level 7.9 L Test 06/20/17 09:00 Bedside Glucose 243 H Medications Medications Current Medications Benazepril HCl (Lotensin) 40 mg DAILY PO Last administered on 06/20/17t 09:14; Admin Dose 40 MG; Start 06/17/17 at 09:00 Furosemide (Lasix) 40 mg DAILY PO Last administered on 06/20/17 09:14; Admin Dose 40 MG; Start 06/17/17 at 09:00 Metoprolol Tartrate (Lopressor) 25 mg DAILY PO Last administered on 06/20/17 09 :15; Admin Dose 25 MG; Start 06/17/17 at 09:00 Pantoprazole (Protonix Tab) 40 mg DAILY@06 PO Last administered on 06/20/17 05: 11; Admin Dose 40 MG; Start 06/17/17 at 06:00 Atorvastatin Calcium (Lipitor) 20 mg HS PO Last administered on 06/19/17 21:19 ; Admin Dose 20 MG; Start 06/17/17 at 21:00 Morphine Sulfate (morphine) 3 mg Q4H PRN IV PAIN LEVEL 6-10 Last administered on 06/18/17 17:33; Admin Dose 2 MG; Start 06/17/17 at 01:00 Ondansetron HCl (Zofran Inj) 4 mg Q6H PRN IV NAUSEA AND/OR VOMITING; Start 06/17 at 01:00 Acetaminophen (Tylenol Tab) 650 mg Q6H PRN PO PAIN AND OR ELEVATED TEMP; Start 06/17/17 at 01:00 Miscellaneous Information 1 ea NOTE XX ; Start 06/17/17 at 21:30 Glucose (Glutose) 15 gm Q15M PRN PO DECREASED GLUCOSE; Start 06/17/17 at 21:30 Glucose (Glutose) 22.5 gm Q15M PRN PO DECREASED GLUCOSE; Start 06/17/17 at 21:30 Dextrose (D50w Syringe) 25 ml Q15M PRN IV DECREASED GLUCOSE; Start 06/17/17 at 21:30 Dextrose (D50w Syringe) 50 ml Q15M PRN IV DECREASED GLUCOSE; Start 06/17/17 at 21:30 Glucagon (Glucagen) 1 mg Q15M PRN IM DECREASED GLUCOSE; Start 06/17/17 at 21:30 Glucose (Glutose) 15 gm Q15M PRN BUCCAL DECREASED GLUCOSE; Start 06/17/17 at 21: 30 Enoxaparin Sodium (Lovenox) 30 mg DAILY SC Last administered on 06/20/17 09:08 ; Admin Dose 30 MG; Start 06/19/17 at 09:00 Morphine Sulfate (morphine) 2 mg Q2H PRN IV pain Last administered on 06/19/17 16:54; Admin Dose 2 MG; Start 06/18/17 at 22:30 Acetaminophen/ Hydrocodone Bitart ([place] (5/325)) 1 tab Q3H PRN PO PAIN Last administered on 06/20/17 10:56; Admin Dose 1 TAB; Start 06/18/17 at 22:30 Diagnostic Test (Pha) (Accu-Chek) 1 ea 02 XX Last administered on 06/20/17 02: 20; Admin Dose 1 EA; Start 06/19/17 at 02:00 Insulin Glargine (Lantus) 10 unit DAILY@08 SC Last administered on 06/20/17 09: 06; Admin Dose 10 UNIT; Start 06/20/17 at 08:00 TOYA MEJIA MD Jun 20, 2017 13:00
[2017-06-20 14:50] VITALS: BP 124/57; RESP 20
[2017-06-20 15:20] LABS: ADD UMIC YES; UR ASCORBIC ACID NEGATIVE (NEGATIVE); UR BILIRUBIN (Dip) NEGATIVE (NEGATIVE); UR BLOOD (Dip) 3+ mg/dL (NEGATIVE); UR CLARITY CLEAR (CLEAR); UR COLOR YELLOW (YELLOW); UR GLUCOSE (Dip) NEGATIVE (NEGATIVE); UR KETONES (Dip) NEGATIVE (NEGATIVE); UR LEUKOCYTE ESTERASE (Dip) NEGATIVE Leu/ul (NEGATIVE); UR NITRITE (Dip) NEGATIVE (NEGATIVE); UR RBC 179 /HPF (0-5); UR SPECIFIC GRAVITY (Dip) 1.012 (1.003-1.030); UR TOTAL PROTEIN (Dip) 1+ mg/dl (NEGATIVE); UR UROBILINOGEN (Dip) NEGATIVE (NEGATIVE)
[2017-06-20 19:35] VITALS: BP 156/67; RESP 20
[2017-06-20] MEDS: ATORVASTATIN 20 MG TAB PO SCH (20:45)
[2017-06-21 02:00] VITALS: BP 125/57; RESP 18
[2017-06-21] MEDS: ACCU-CHEK XX SCH (02:00)
[2017-06-21] MEDS: HYDROCODONE/APAP (5/325) TAB PO PRN ×3 (02:27→19:58)
[2017-06-21 06:08] LABS: CALCIUM 7.9 mg/dl (8.4-10.2); CREATININE 2.31 mg/dl (0.44-1.00); POTASSIUM 4.8 mmol/L (3.5-5.1)
[2017-06-21] MEDS: DOCUSATE SODIUM 100 MG CAP PO SCH ×2 (06:20→19:57)
[2017-06-21] MEDS: PANTOPRAZOLE (EC) 40 MG TAB PO SCH (06:20)
[2017-06-21] MEDS: POLYETHYLENE GLYCOL 17 GM PACKET PO SCH (06:20)
[2017-06-21 07:00] VITALS: BP 133/63; RESP 20
[2017-06-21] MEDS: ENOXAPARIN 30 MG/0.3 ML SYG SC SCH (08:40)
[2017-06-21] MEDS: INSULIN GLARGINE [LANtus] 3 ML PEN SC SCH (08:41)
[2017-06-21] MEDS: METOPROLOL 25 MG TAB PO SCH (08:41)
[2017-06-21] MEDS: FUROSEMIDE 40 MG TAB PO SCH (08:42)
[2017-06-21] MEDS: BENAZEPRIL 40 MG TAB PO SCH (08:42)
[2017-06-21] MEDS: INSULIN ASPART [NOVOLOG] 3 ML PEN SC SCH ×4 (08:47→21:07)
--- NOTE | 2017-06-21 13:17 | PN ---
Date/Time of Note Date/Time of Note DATE: 06/21/17 TIME: 13:15 Assessment/Plan VTE Prophylaxis VTE Prophylaxis Intervention: SCD's Lines/Catheters IV Catheter Type (from Nrsg): Saline Lock Urinary Cath still in place: Yes Reason Cath still needed: other (indicate) (per ortho) Assessment/Plan Assessment/Plan 81 yo F with pmhx DM2, CKD here for L hip pain following mechanical fall at home found to have a comminuted intertrochanteric fracture of her left hip sp surgical repair 9.5 PLAN #Hip fracture: sp surgical repair 9.5 #MARIANA on CKD: Cr closer to baseline. Of note pt with microhematuria, appears this was present on 2012 UA. Will need outpatient f/u and routine nephro f/u #DM2, HTN: increased lantus to 15 units q daily, may need to increase further DVT prophx ARU eval in process Subjective 24 Hr Interval Summary Free Text/Dictation Sleeping BGs still high Exam/Review of Systems Vital Signs Vitals Vital Signs Date Time Temp Pulse Resp B/P Pulse Ox O2 Delivery O2 Flow Rate FiO2 06/21/17 07:00 98.8 78 20 133/63 100 06/20/17 19:36 Nasal Cannula 2.0 Intake and Output 06/20/17 06/20/17 06/21/17 14:59 22:59 06:59 Intake Total 1720 ml 360 ml Output Total 850 ml 1400 ml Balance 870 ml -1040 ml Exam nad no mrg lungs clear abd soft jean in place Results Result Diagram: 06/18/17 2306 06/21/17 0455 Results 24 hrs Laboratory Tests Test 06/20/17 14:44 06/20/17 17:42 06/20/17 20:47 06/21/17 02:17 Urine Color YELLOW Urine Clarity CLEAR Urine pH 5.0 Urine Specific [place] 1.012 Urine Ketones NEGATIVE Urine Nitrite NEGATIVE Urine Bilirubin NEGATIVE Urine Urobilinogen NEGATIVE Urine Leukocyte Esterase NEGATIVE Urine Microscopic RBC 179 H Urine Microscopic WBC 5 Urine Hemoglobin 3+ H Urine Random Creatinine 65.65 Urine Random Sodium 45 Urine Random Urea Nitrogen 534 Urine Glucose NEGATIVE Urine Total Protein 1+ H Bedside Glucose 232 H 237 H 222 H Test 06/21/17 04:55 06/21/17 08:41 06/21/17 12:17 Sodium Level 134 L Potassium Level 4.8 Chloride Level 106 Carbon Dioxide Level 23 Anion Gap 10 Blood Urea Nitrogen 67 H Creatinine 2.31 H Glucose Level 217 Calcium Level 7.9 L Bedside Glucose 234 H 261 H Medications Medications Current Medications Benazepril HCl (Lotensin) 40 mg DAILY PO Last administered on 06/21/17 08:42; Admin Dose 40 MG; Start 06/17/17 at 09:00 Furosemide (Lasix) 40 mg DAILY PO Last administered on 06/21/17 08:42; Admin Dose 40 MG; Start 06/17/17 at 09:00 Metoprolol Tartrate (Lopressor) 25 mg DAILY PO Last administered on 06/21/17 08 :41; Admin Dose 25 MG; Start 06/17/17 at 09:00 Pantoprazole (Protonix Tab) 40 mg DAILY@06 PO Last administered on 06/21/17 06: 20; Admin Dose 40 MG; Start 06/17/17 at 06:00 Atorvastatin Calcium (Lipitor) 20 mg HS PO Last administered on 06/20/17 20:45 ; Admin Dose 20 MG; Start 06/17/17 at 21:00 Morphine Sulfate (morphine) 3 mg Q4H PRN IV PAIN LEVEL 6-10 Last administered on 06/18/17 17:33; Admin Dose 2 MG; Start 06/17/17 at 01:00 Ondansetron HCl (Zofran Inj) 4 mg Q6H PRN IV NAUSEA AND/OR VOMITING; Start 06/17 at 01:00 Acetaminophen (Tylenol Tab) 650 mg Q6H PRN PO PAIN AND OR ELEVATED TEMP; Start 06/17/17 at 01:00 Miscellaneous Information 1 ea NOTE XX ; Start 06/17/17 at 21:30 Glucose (Glutose) 15 gm Q15M PRN PO DECREASED GLUCOSE; Start 06/17/17 at 21:30 Glucose (Glutose) 22.5 gm Q15M PRN PO DECREASED GLUCOSE; Start 06/17/17 at 21:30 Dextrose (D50w Syringe) 25 ml Q15M PRN IV DECREASED GLUCOSE; Start 06/17/17 at 21:30 Dextrose (D50w Syringe) 50 ml Q15M PRN IV DECREASED GLUCOSE; Start 06/17/17 at 21:30 Glucagon (Glucagen) 1 mg Q15M PRN IM DECREASED GLUCOSE; Start 06/17/17 at 21:30 Glucose (Glutose) 15 gm Q15M PRN BUCCAL DECREASED GLUCOSE; Start 06/17/17 at 21: 30 Enoxaparin Sodium (Lovenox) 30 mg DAILY SC Last administered on 06/21/17 08:40 ; Admin Dose 30 MG; Start 06/19/17 at 09:00 Morphine Sulfate (morphine) 2 mg Q2H PRN IV pain Last administered on 06/19/17 16:54; Admin Dose 2 MG; Start 06/18/17 at 22:30 Acetaminophen/ Hydrocodone Bitart ([place] (5/325)) 1 tab Q3H PRN PO PAIN Last administered on 06/21/17 09:36; Admin Dose 1 TAB; Start 06/18/17 at 22:30 Diagnostic Test (Pha) (Accu-Chek) 1 ea 02 XX Last administered on 06/20/17 02: 20; Admin Dose 1 EA; Start 06/19/17 at 02:00 Insulin Glargine (Lantus) 10 unit DAILY@08 SC Last administered on 06/21/17 08: 41; Admin Dose 10 UNIT; Start 06/20/17 at 08:00 Polyethylene Glycol (Miralax) 17 gm DAILY PO Last administered on 06/21/17 06: 20; Admin Dose 17 GM; Start 06/21/17 at 05:31 Docusate Sodium (Colace) 100 mg BID PO Last administered on 06/21/17 06:20; Admin Dose 100 MG; Start 06/21/17 at 06:01 TOYA MEJIA MD Jun 21, 2017 13:17
[2017-06-21 14:00] VITALS: BP 140/63; RESP 18
[2017-06-21 19:05] VITALS: BP 149/63; RESP 20
[2017-06-21] MEDS: ATORVASTATIN 20 MG TAB PO SCH (19:57)
[2017-06-21] MEDS ORDERED: INSULIN ASPART [NOVOLOG] 3 ML PEN SC ONE (21:30)
[2017-06-22] MEDS: ACCU-CHEK XX SCH (02:00)
[2017-06-22] MEDS ORDERED: ACCU-CHEK XX SCH (02:00)
[2017-06-22 02:35] VITALS: BP 138/64; RESP 20
[2017-06-22] MEDS ORDERED: MAGNESIUM CITRATE 300 ML BTL PO ONE (05:30)
[2017-06-22] MEDS: PANTOPRAZOLE (EC) 40 MG TAB PO SCH (06:18)
[2017-06-22 07:00] VITALS: BP 163/75; RESP 20
[2017-06-22] MEDS ORDERED: INSULIN GLARGINE [LANtus] 3 ML PEN SC SCH ×2 (08:00)
[2017-06-22] MEDS: POLYETHYLENE GLYCOL 17 GM PACKET PO SCH (09:10)
[2017-06-22] MEDS: FUROSEMIDE 40 MG TAB PO SCH (09:11)
[2017-06-22] MEDS: DOCUSATE SODIUM 100 MG CAP PO SCH (09:11)
[2017-06-22] MEDS: METOPROLOL 25 MG TAB PO SCH (09:11)
[2017-06-22] MEDS: BENAZEPRIL 40 MG TAB PO SCH (09:11)
[2017-06-22] MEDS: INSULIN ASPART [NOVOLOG] 3 ML PEN SC SCH ×3 (09:13→17:44)
[2017-06-22] MEDS: HYDROCODONE/APAP (5/325) TAB PO PRN ×3 (09:14→17:34)
[2017-06-22] MEDS: ENOXAPARIN 30 MG/0.3 ML SYG SC SCH (09:24)
[2017-06-22 10:39] LABS: BASOPHIL # 0.1 10^3/ul (0.0-0.1); BASOPHILS % 0.7 % (0.0-2.0); EOSINOPHILS # 0.3 10^3/ul (0.0-0.5); EOSINOPHILS % 2.9 % (0.0-7.0); HEMATOCRIT 29.8 % (37.0-47.0); HEMOGLOBIN 9.4 g/dl (12.0-16.0); LYMPHOCYTES % 11.2 % (15.0-51.0); MEAN CORPUSCULAR HEMOGLOBIN 29.6 pg (29.0-33.0); MEAN CORPUSCULAR HGB CONC 31.5 g/dl (32.0-37.0); MEAN CORPUSCULAR VOLUME 93.7 fl (82.0-101.0); MEAN PLATELET VOLUME 10.6 fl (7.4-10.4); MONOCYTE # 0.7 10^3/ul (0.3-0.9); MONOCYTES % 7.3 % (0.0-11.0); NEUTROPHILS % 76.5 % (39.0-77.0); PLATELET COUNT 243 10^3/UL (140-415); RED BLOOD COUNT 3.18 10^6/ul (4.20-5.40); RED CELL DISTRIBUTION WIDTH 14.8 % (11.5-14.5); WHITE BLOOD COUNT 8.9 10^3/ul (4.8-10.8)
[2017-06-22 10:56] LABS: CALCIUM 8.8 mg/dl (8.4-10.2); CREATININE 1.6 mg/dl (0.44-1.00); POTASSIUM 5.1 mmol/L (3.5-5.1)
[2017-06-22 14:00] VITALS: BP 130/60; RESP 20
--- NOTE | 2017-06-22 14:34 | DS ---
Date/Time of Note Date/Time of Note DATE: 06/22/17 TIME: 14:33 Discharge Summary Admission/Discharge Info Admit Date/Time Jun 16, 2017 at 22:16 Discharge Date/Time Discharge Diagnosis Comminuted intertrochanteric fracture left hip, Diabetes Patient Condition: Stable Consults orthopedic surgery Procedures 9.5 O.R.I.F of L hip fracture Hx of Present Illness This is an 81-year-old female with a history of hypertension, diabetes, dyslipidemia, CKD who presented to the emergency department for left hip pain. Patient had a ground-level fall and when she came in the ER she was found to have a left hip fracture. Initial vitals were within normal limits. Labs shows a creatinine of 2, otherwise basic labs within acceptable range. Chest x- ray with bibasilar atelectasis. . Hospital Course Pt presented following L hip fracture. Seen by ortho and underwent ORIF 9.5. Blood sugars a little high so home DM regimen uptitrated to include insulin. Pt discharged to SNF for subacute rehab for her hip. Home Meds Reported Medications Benazepril Hcl* (Benazepril Hcl*) 40 Mg Tablet, 40 MG PO DAILY 01/13/13 Pravastatin Sodium* (Pravastatin Sodium*) 20 Mg Tablet, 20 MG PO DAILY 01/13/13 Sitagliptin* (Januvia*) 50 Mg Tablet, 50 MG PO HS 01/13/13 Aspirin (Aron Child) 81 Mg Chew, 81 MG PO DAILY 01/13/13 Metoprolol Tartrate* (Lopressor*) 25 Mg Tab, 25 MG PO DAILY 01/13/13 Furosemide (Lasix) 40 Mg Tab, 40 MG PO DAILY 01/13/13 Pantoprazole* (Protonix*) 40 Mg Tablet.dr, 40 MG PO DAILY 01/13/13 Glipizide* (Glipizide*) 10 Mg Tablet, 10 MG PO BID 01/13/13 Follow-up Plan ortho within 2 weeks PCP within 2 weeks Primary Care Provider Jones Duran Time spent on discharge: > 30 minutes Pending Labs Laboratory Tests Test 06/21/17 17:26 06/21/17 21:04 06/22/17 02:14 06/22/17 08:33 Bedside Glucose 235mg/dL (70-220) 312mg/dL (70-220) 237mg/dL (70-220) 261mg/dL (70-220) Test 06/22/17 10:22 06/22/17 12:43 White Blood Count 8.910^3/ul (4.8-10.8) Red Blood Count 3.1810^6/ul (4.20-5.40) Hemoglobin 9.4g/dl (12.0-16.0) Hematocrit 29.8% (37.0-47.0) Mean Corpuscular Volume 93.7fl (82.0-101.0) Mean Corpuscular Hemoglobin 29.6pg (29.0-33.0) Mean Corpuscular Hemoglobin Concent 31.5g/dl (32.0-37.0) Red Cell Distribution Width 14.8% (11.5-14.5) Platelet Count 74008^3/UL (140-415) Mean Platelet Volume 10.6fl (7.4-10.4) Neutrophils % 76.5% (39.0-77.0) Lymphocytes % 11.2% (15.0-51.0) Monocytes % 7.3% (0.0-11.0) Eosinophils % 2.9% (0.0-7.0) Basophils % 0.7% (0.0-2.0) Nucleated Red Blood Cells % 0.0/100WBC (0.0-0.0) Neutrophils # (Manual) 6.810^3/ul (1.7-7.5) Lymphocytes # 1.010^3/ul (0.8-2.9) Monocytes # 0.710^3/ul (0.3-0.9) Eosinophils # 0.310^3/ul (0.0-0.5) Basophils # 0.110^3/ul (0.0-0.1) Nucleated Red Blood Cells # 0.010^3/ul (0.0-0.0) Sodium Level 138mmol/L (135-144) Potassium Level 5.1mmol/L (3.5-5.1) Chloride Level 106mmol/L (97-110) Carbon Dioxide Level 27mmol/L (21-31) Anion Gap 10 (8-16) Blood Urea Nitrogen 50mg/dl (7-20) Creatinine 1.60mg/dl (0.44-1.00) Glucose Level 256mg/dl (70-220) Calcium Level 8.8mg/dl (8.4-10.2) Bedside Glucose 251mg/dL (70-220) TOYA MEJIA MD Jun 22, 2017 14:34
--- NOTE | 2017-06-22 14:47 | PDOCDIS ---
Discharge Instructions DIAGNOSIS Discharge Diagnosis Comminuted intertrochanteric fracture left hip, Diabetes CONDITION Patient Condition: Stable HOME CARE INSTRUCTIONS: Special Diet: carb controlled diet FOLLOW UP/APPOINTMENTS Follow-up Plan Ortho within [address] Hobbs Office Address [address] [place] [id number] Office PCP within 2 weeks TOYA MEJIA MD Jun 22, 2017 14:47
== END 2017-06-22 18:20 | DRG 481 ==
LOC: E/R 19:26 → MS1 22:16
PROVIDERS: ADMIT Internal Medicine; ATTEND Internal Medicine
PROC: 0QS706Z Reposition Left Upper Femur with Intramedullary Internal Fixation Device, Open Approach (ICD-10-PCS; principal; 2017-06-18 17:00)
DX: S72.142A Displaced intertrochanteric fracture of left femur, initial encounter for closed fracture (principal); N17.9 Acute kidney failure, unspecified; E11.22 Type 2 diabetes mellitus with diabetic chronic kidney disease; E66.01 Morbid (severe) obesity due to excess calories; Z68.39 Body mass index [BMI] 39.0-39.9, adult; N18.9 Chronic kidney disease, unspecified; E78.5 Hyperlipidemia, unspecified; I12.9 Hypertensive chronic kidney disease with stage 1 through stage 4 chronic kidney disease, or unspecified chronic kidney disease; W01.0XXA Fall on same level from slipping, tripping and stumbling without subsequent striking against object, initial encounter; Y92.009 Unspecified place in unspecified non-institutional (private) residence as the place of occurrence of the external cause; Z79.84 Long term (current) use of oral hypoglycemic drugs; Z79.82 Long term (current) use of aspirin
CPT/HCPCS: 71010; 73500; 73510; 80048; 81001; 82540; 82962; 83036; 84155; 84300; 85025; 85610; 85730; 86850; 86900; 86901; 86920; 93005; 96374; 96375; 96376; 97110; 97163; 97530; J0690; J1100; J1170; J1644; J1650; J1815; J2270; J2370; J2405; J2765; J3010; J7030

== ENCOUNTER 2017-07-11 14:28 | Emergency (ER) | payer OTHER ==
[~2017-07-11 14:28] MED LIST changes: -ASPI-676 PO; -GLIP-95 PO; -SITA50TA2 PO
[2017-07-11] MEDS ORDERED: ONDANSETRON (ODT) 4 MG TAB ODT STA (15:14)
[2017-07-11] MEDS ORDERED: HYDROCODONE/APAP (10/325) TAB PO ONE (15:30)
[2017-07-11] MEDS ORDERED: morphine 4 MG/ML VIAL IV STA (16:17)
[2017-07-11] MEDS ORDERED: ONDANSETRON 4 MG INJ IV STA (16:17)
--- NOTE | 2017-07-11 16:19 | RADRPT ---
PROCEDURE: XR Femur. CLINICAL INDICATION: Pain TECHNIQUE: AP views of the left femur were performed. The patient could not tolerate the lateral vi ews. COMPARISON: June 18, 2017 FINDINGS: The patient is status post ORIF left intertrochanteric femoral neck fracture. Hardware appears intac t. Fracture fragments and fracture lines are still evident. Overall, there is no interval change. There is severe osteoarthritis of the left knee joint. IMPRESSION: Successful ORIF left intertrochanteric femoral neck fracture. Hardware appears intact. Overall, no i nterval change. RPTAT: EE .Teresita Skinner MD, MD Date Time Electronically viewed and signed by .Teresita Skinner MD, MD on 07/11/2017 16:18 .F/
[2017-07-11] MEDS ORDERED: HYDR-902 PO (16:31)
[2017-07-11] MEDS ORDERED: DOCU-144 PO (16:31)
--- NOTE | 2017-07-11 16:38 | ERD ---
ER Documentation Chief Complaint Date/Time DATE: 07/11/17 TIME: 16:38 Chief Complaint Left hip pain HPI Patient is an 81-year-old female with hypertension and diabetes who presents with left hip pain. The patient was brought in by ambulance and came from a facility. The patient has had left hip pain since surgery on June 17 on the left hip. She did have a recent fall as well. She has not tried anything for pain as of yet. The pain is sharp in nature and hurts worse with movement. ROS All systems reviewed and are negative except as per history of present illness. Medications Home Meds Active Scripts Docusate Sodium* (Colace*) 100 Mg Capsule, 100 MG PO TID, #30 CAP Prov:REANNA LUU MD 07/11/17 Hydrocodone/Acetaminophen ([place] 10-325 Tablet) 1 Each Tablet, 1 TAB PO Q6H Y for PAIN, #7 TAB Prov:REANNA LUU MD 07/11/17 Reported Medications Benazepril Hcl* (Benazepril Hcl*) 40 Mg Tablet, 40 MG PO DAILY 01/13/13 Pravastatin Sodium* (Pravastatin Sodium*) 20 Mg Tablet, 20 MG PO DAILY 01/13/13 Metoprolol Tartrate* (Lopressor*) 25 Mg Tab, 25 MG PO DAILY 01/13/13 Furosemide (Lasix) 40 Mg Tab, 40 MG PO DAILY 01/13/13 Pantoprazole* (Protonix*) 40 Mg Tablet.dr, 40 MG PO DAILY 01/13/13 Allergies Allergies: Coded Allergies: No Known Allergy (Unverified , 01/13/13) PMhx/Soc History of Surgery: No Anesthesia Reaction: No Hx Neurological Disorder: No Hx Respiratory Disorders: No Hx Cardiac Disorders: Yes (hypertension) Hx Psychiatric Problems: No Hx Miscellaneous Medical Probl: Yes (see PT note) Hx Alcohol Use: No Hx Substance Use: No Hx Tobacco Use: No FmHx Family History: No diabetes Physical Exam Physical Exam Const: Mild distress secondary to left hip pain Head: Atraumatic Eyes: Normal Conjunctiva ENT: Normal External Ears, Nose and Mouth. Neck: Full range of motion..~ No meningismus. Resp: Clear to auscultation bilaterally Cardio: Regular rate and rhythm, no murmurs Abd: Soft, non tender, non distended. Normal bowel sounds Skin: No petechiae or rashes Back: No midline or flank tenderness Ext: Pain with palpation of the left hip with range of motion but no shortening or rotation noted, 2+ pulses in the lower extremities bilaterally Neur: Awake and alert Psych: Normal Mood and Affect Results 24 hrs Current Medications Medications (Trade) Dose Ordered Sig/Raghavendra Route PRN Reason Start Time Stop Time Status Last Admin Dose Admin Acetaminophen/ Hydrocodone Bitart ([place] (10/325)) 1 tab ONCE ONCE PO 07/11/17 15:30 07/11/17 15:31 DC 07/11/17 15:47 Ondansetron HCl (Zofran Odt) 4 mg ONCE STAT ODT 07/11/17 15:14 07/11/17 15:15 DC 07/11/17 15:47 Morphine Sulfate (morphine) 4 mg ONCE STAT IV 07/11/17 16:17 07/11/17 16:31 DC Ondansetron HCl (Zofran Inj) 4 mg ONCE STAT IV 07/11/17 16:17 07/11/17 16:31 DC Procedures/MDM EKG read by me: Rate/Rhythm: Regular rate and rhythm at a rate of 78 Intervals: Normal Impression: No evidence of ischemia or arrhythmia Left femur x-ray negative for fracture or dislocation per radiology. There is previous surgical fixation. Chest x-ray pending radiology read at this time. Patient is a 81-year-old female with hypertension and diabetes who presents with left hip pain. She was given [place] for pain. X-ray of the left femur shows no new fracture or dislocation. There is previous surgical fixation which appears intact. The patient will be discharged back to the nursing facility with a prescription for [place] and Colace. The patient can return for any worsening symptoms. There is no sign of acute infection. Departure Diagnosis: Primary Impression: Hip pain Laterality: left Qualified Code: M25.552 - Pain of left hip joint Condition: Fair Patient Instructions: Hip Precautions Additional Instructions: Llame al doctor MAANA y liv ariadna SINDHU PARA DENTRO DE 1-2 VERAS.Dgale a la secretaria que nosotros le instruimos hacer esta sindhu.Avise o llame si sampson condicin se empeora antes de la sindhu. Regresa aqui si peor o no mejor. REANNA LUU MD Jul 11, 2017 16:38
--- NOTE | 2017-07-11 16:44 | RADRPT ---
PROCEDURE: XR Chest. CLINICAL INDICATION: Abdominal pain. TECHNIQUE: Single frontal view. COMPARISON: 06/16/2017. FINDINGS: The lungs are clear. The heart is enlarged. There is no pleural effusion. There is no pneumothorax. IMPRESSION: 1. Cardiomegaly. 2. Clear lungs. RPTAT: QQ .Fausto Joseph MD, MD Date Time Electronically viewed and signed by .Fasuto Joseph MD, MD on 07/11/2017 16:44 .R/
--- NOTE | 2017-07-11 16:53 | RADRPT ---
PROCEDURE: XR Chest. CLINICAL INDICATION: Abdominal pain. TECHNIQUE: Single frontal view. COMPARISON: 07/11/2017. FINDINGS: The lungs are clear. The heart is enlarged. There is calcification in the aorta consistent with atherosclerosis. There is no pleural effusion. There is no pneumothorax. IMPRESSION: 1. Cardiomegaly and atherosclerosis. 2. Clear lungs. RPTAT: QQ .Fausto Joseph MD, MD Date Time Electronically viewed and signed by .Fausto Joseph MD, MD on 07/11/2017 16:53 .R/
[2017-07-11 17:20] VITALS: BP 112/54; PULSE 84; RESP 16; TEMP 98.6
[2017-07-11] MEDS ORDERED: APIX2.5T PO (17:43)
[2017-07-11] MEDS ORDERED: ASPI-664 PO (17:43)
[2017-07-11] MEDS ORDERED: HYDR-906 PO (17:44)
[2017-07-11] MEDS ORDERED: LOPE2CAP PO (17:46)
[2017-07-11] MEDS ORDERED: LEVO25TA53 PO (17:47)
[2017-07-11] MEDS ORDERED: LANT3I SC ×2 (17:47)
[2017-07-11] MEDS ORDERED: BENA40TA41 PO (17:52)
[2017-07-11] MEDS ORDERED: METO1TAB7 PO (17:52)
[2017-07-11] MEDS ORDERED: MULT-105 PO (17:54)
[2017-07-11] MEDS ORDERED: OMEP20CA16 PO (17:55)
[2017-07-11] MEDS ORDERED: UDMYL PO (17:55)
[2017-07-11] MEDS ORDERED: ACET325T33 PO ×2 (17:58)
[2017-07-11] MEDS ORDERED: ZINC220T PO (17:59)
[2017-07-11] MEDS ORDERED: ASC500 PO (17:59)
== END 2017-07-11 17:55 | disposition home or self-care (01) ==
LOC: E/R 14:28
DX: M25.552 Pain in left hip (principal); I10 Essential (primary) hypertension; E11.9 Type 2 diabetes mellitus without complications
CPT/HCPCS: 71010; 73550; 93005

== ENCOUNTER 2017-08-10 16:28 | Emergency (ER) | payer OTHER ==
[~2017-08-10] VITALS: Ht 165.1 cm; Wt 100.0 kg
[~2017-08-10 16:28] MED LIST changes: +ACET325T33 PO; +AMIODARONE 150 MG INJ ONE; +APIX2.5T PO; +ASC500 PO; +ASPI-664 PO; +CA CHLORIDE 10% 10 ML SYRINGE ONE; +DOCU-144 PO; +EPINEPHrine 0.1 MG/ML SYG ONE; +ETOMIDATE 20 MG INJ ONE; -FURO40TA4 PO; +HYDR-902 PO; +HYDR-906 PO; +LANT3I SC; +LEVO25TA53 PO; +LOPE2CAP PO; +MAGNESIUM SULFATE 1 GM/100 ML D5W IVPB ONE; +METO1TAB7 PO; +MULT-105 PO; +OMEP20CA16 PO; -PANT40TA3 PO; +SODIUM CL BACTERIOSTATIC 30 ML INJ ONE; +UDMYL PO; +ZINC220T PO
[2017-08-10 16:37] VITALS: Ht 165.1 cm; Wt 100.0 kg
[2017-08-10] MEDS ORDERED: SODIUM CHLORIDE 0.9% 1L BAG IV* STA (16:50)
[2017-08-10] MEDS ORDERED: CA CHLORIDE 10% 10 ML SYRINGE ONE (16:56)
[2017-08-10] MEDS ORDERED: NORepinephrine 8MG/250 ML (PMX 250 ML ONE (16:58)
[2017-08-10] MEDS ORDERED: VECURONIUM 100 MG in DEXTROSE 5% 100 ML IV ONE (17:14)
[2017-08-10] MEDS ORDERED: SODIUM CHLORIDE 0.9% 500 ML BAG IV* STA (17:14)
[2017-08-10] MEDS ORDERED: ETOMIDATE 20 MG INJ IV STA (17:14)
[2017-08-10] MEDS ORDERED: ROCURONIUM 50 MG INJ IV STA (17:14)
[2017-08-10] MEDS ORDERED: FENTAnyl 50 MCG/ML VIAL IV PRN (17:30)
[2017-08-10] MEDS ORDERED: MIDAZOLAM (DRIP) 50 mg/50 mL 50 ML IV SCH (17:30)
[2017-08-10 18:03] LABS: AADO2 Arterial 532.1 mmHg (7.0-24.0); Arterial Base Excess -23.4 mmol/L (-3.0-3); Arterial COHb 0.3 % (0.0-3.0); Arterial Fraction of Oxyhgb 96.7 % (93.0-99.0); Arterial HCO3 6.6 mmol/L (22.0-26.0); Arterial MetHb 0.6 % (0.0-1.5); Arterial Total Hemglobin 11.8 g/dl (12.0-18.0); MODE TRACH COLLAR
[2017-08-10] MEDS ORDERED: NORepinephrine 8MG/250 ML (PMX 250 ML IV STA (18:04)
[2017-08-10] MEDS ORDERED: VASOPRESSIN 60 UNIT in SOD CHLORIDE 0.9% 57 ML IV STA (18:04)
[2017-08-10] MEDS ORDERED: CEFEPIME 2GM/50 ML (PMX) 50 ML IVPB STA (18:04)
[2017-08-10 18:08] LABS: ABNORMAL IP MESSAGE 1; RED CELL DISTRIBUTION WIDTH 17.6 % (11.5-14.5)
[2017-08-10 18:17] VITALS: BP 98/46; PULSE 79
[2017-08-10] MEDS ORDERED: VANCOMYCIN 1 GM (PMX) 250 ML IVPB ONE (18:30)
[2017-08-10 18:47] LABS: ADD UMIC YES; UR ASCORBIC ACID NEGATIVE (NEGATIVE); UR BACTERIA MANY /HPF (NONE SEEN); UR BILIRUBIN (Dip) NEGATIVE (NEGATIVE); UR BLOOD (Dip) 2+ mg/dL (NEGATIVE); UR CLARITY TURBID (CLEAR); UR COLOR GREEN (YELLOW); UR GLUCOSE (Dip) NEGATIVE (NEGATIVE); UR KETONES (Dip) NEGATIVE (NEGATIVE); UR LEUKOCYTE ESTERASE (Dip) 2+ Leu/ul (NEGATIVE); UR NITRITE (Dip) NEGATIVE (NEGATIVE); UR RBC 69 /HPF (0-5); UR SQUAMOUS EPITHELIAL CELL FEW /HPF (FEW); UR TOTAL PROTEIN (Dip) 2+ mg/dl (NEGATIVE); UR UROBILINOGEN (Dip) NEGATIVE (NEGATIVE)
[2017-08-10 18:51] LABS: LYMPHOCYTES # 2.9 10^3/ul (0.8-2.9); MONOCYTE # 0.4 10^3/ul (0.3-0.9); NEUTROPHIL # 6.7 10^3/ul (1.6-7.5)
[2017-08-10 18:58] LABS: RED BLOOD COUNT 3.28 10^6/ul (4.20-5.40); WHITE BLOOD COUNT 10.4 10^3/ul (4.8-10.8)
[2017-08-10] MEDS ORDERED: morphine 2 MG INJ IV ONE ×2 (19:00→22:00)
[2017-08-10] MEDS ORDERED: SOD CHLORIDE 0.9% 1,000 ML IV SCH (19:00)
[2017-08-10 19:02] LABS: HEMATOCRIT 32.7 % (37.0-47.0); MEAN CORPUSCULAR HEMOGLOBIN 29.6 pg (29.0-33.0); MEAN CORPUSCULAR HGB CONC 29.7 g/dl (32.0-37.0); MEAN CORPUSCULAR VOLUME 99.7 fl (82.0-101.0)
[2017-08-10 19:03] LABS: BASOPHILS % 0.5 % (0.0-2.0); EOSINOPHILS % 0.5 % (0.0-7.0); LYMPHOCYTES % 27.4 % (15.0-51.0); MONOCYTES % 4.3 % (0.0-11.0); NEUTROPHILS % 64.7 % (39.0-77.0); PLATELET COUNT 116 10^3/UL (140-415)
[2017-08-10 19:04] LABS: POSITIVE DIFF @See below
[2017-08-10 19:06] LABS: HEMOGLOBIN 9.7 g/dl (12.0-16.0)
--- NOTE | 2017-08-10 19:07 | RADRPT ---
PROCEDURE: XR Chest. CLINICAL INDICATION: Possible sepsis. Endotracheal intubation. TECHNIQUE: 2 frontal views of the chest. COMPARISON: 01/13/2013. FINDINGS: On the second of 2 images the endotracheal intubation tip is about 9 mm above the davis. Cardiomegaly. Atherosclerotic calcifications in the tortuous thoracic aorta. Dense atelectasis versu s airspace disease in the left lung. There is at least partial reinflation of the left lung over the course of the 2 provided images. Right lung is clear. No signs of pleural fluid or pneumothorax are seen. The osseous structures and soft tissues are unremarkable. IMPRESSION: 1. Endotracheal intubation is seen with tip about 9 mm above the davis. 2. Dense atelectasis versus airspace disease in the left lung. 3. There is at least partial reinflation of the left lung over the course of the 2 provided images. RPTAT: [facility] Physician Nick Date Time Electronically viewed and signed by Physician Nick on 08/10/2017 19:06 RS/
[2017-08-10 19:13] LABS: ALANINE AMINOTRANSFERASE 251 IU/L (13-69); ALBUMIN 2.8 g/dl (3.3-4.9); ALBUMIN/GLOBULIN RATIO 1.07; ALKALINE PHOSPHATASE 76 IU/L (42-121); CHLORIDE 121 mmol/L (97-110); GLUCOSE 146 mg/dl (70-220); SODIUM 159 mmol/L (135-144); TOTAL PROTEIN 5.4 g/dl (6.1-8.1)
[2017-08-10 19:24] LABS: ANION GAP 41 (8-16); TROPONIN-I 0.075 ng/ml (0.00-0.12)
[2017-08-10 19:25] LABS: ASPARTATE AMINO TRANSFERASE 361 IU/L (15-46); BLOOD UREA NITROGEN 184 mg/dl (7-20); CREATININE 17.78 mg/dl (0.44-1.00)
[2017-08-10 19:27] LABS: CARBON DIOXIDE < 5 mmol/L (21-31); POTASSIUM 7.8 mmol/L (3.5-5.1)
[2017-08-10 19:35] LABS: PROTIME 41.2 Sec (12.2-14.2)
[2017-08-10 19:36] LABS: PT RATIO 3.2
[2017-08-10 19:39] LABS: INR 4.2
[2017-08-10] MEDS ORDERED: CA CHLORIDE 10% 10 ML SYRINGE IV STA (19:48)
--- NOTE | 2017-08-10 20:43 | ERD ---
ER Documentation Chief Complaint Chief Complaint pt here for cp and sob HPI This is an 81-year-old female who presents via EMS. There is very limited history upon arrival. They state chronic encephalopathy and the fact that the patient was recently discharged from half-way facility to hospice at home. It appears that the family saw the patient and were worried that she was having difficulty breathing and was confused and called 911. Upon arrival the patient is in respiratory distress and rapidly placed in a room. Remainder of HPI is limited for this reason. ROS Critical patient Medications Home Meds Active Scripts Docusate Sodium* (Colace*) 100 Mg Capsule, 100 MG PO TID, #30 CAP Prov:REANNA LUU MD 07/11/17 Reported Medications Zinc Sulfate* (Zinc Sulfate*) 220 Mg Tablet, 220 MG PO DAILY, TAB STOPE DATE 07/23/17 07/11/17 Ascorbic Acid (Vitamin C) 500 Mg Tab, 500 MG PO DAILY, TAB 07/11/17 Acetaminophen* (Tylenol*) 325 Mg Tablet, 650 MG PO DAILY Y for PAIN AND OR ELEVATED TEMP, TAB FOR PAIN 30 MIN PRIOR TO WOUND CARE TREATMENT 07/11/17 Acetaminophen* (Tylenol*) 325 Mg Tablet, 650 MG PO Q6H Y for PAIN LEVEL 1-5, TAB 07/11/17 Omeprazole* (Omeprazole*) 20 Mg Capsule.dr, 20 MG PO BID, #60 CAP 07/11/17 Magaldrate/Simethicone* (Mag-Al Plus Suspension*) 30 Ml Oral.susp, 30 ML PO Q6H Y for GASTROINTESTINAL UPSET, ML 07/11/17 Multivitamin with Minerals (Multivitamins with Minerals) 1 Each Tablet, 1 EACH PO DAILY, TAB 07/11/17 Benazepril Hcl* (Benazepril Hcl*) 40 Mg Tablet, 40 MG PO DAILY, #30 TAB HOLD FOR SBP LESS THAN 110 07/11/17 Metoprolol/Hydrochlorothiazide (Metoprolol-Hctz 50-25 mg Tab) 1 Each Tablet, 1 EACH PO DAILY, TAB HOLD FOR SBP LESS THAN 110 07/11/17 Levothyroxine Sodium* (Levothyroxine Sodium*) 25 Mcg Tablet, 25 MCG PO BEFORE BREAKFAST, #30 TAB 07/11/17 Insulin Glargine* (Lantus*) 100 Unit/Ml Soln, 25 UNIT SC QHS, #1 VIAL 07/11/17 Loperamide Hcl* (Imodium*) 2 Mg Capsule, 2 MG PO Q6H Y for DIARRHEA, CAP MAX 16 mg/day END DATE 07/15/17 07/11/17 Hydrocodone/Acetaminophen ([place] 5-325 Tablet) 1 Each Tablet, 1 EACH PO Q4H Y for PAIN LEVEL 6-10, TAB 07/11/17 Apixaban* (Eliquis*) 2.5 Mg Tablet, 2.5 MG PO Q12H, TAB 07/11/17 Aspirin* (Aspirin* EC) 81 Mg Tablet.dr, 81 MG PO DAILY, TAB 07/11/17 Pravastatin Sodium* (Pravastatin Sodium*) 20 Mg Tablet, 20 MG PO QHS 01/13/13 Discontinued Reported Medications Insulin Glargine* (Lantus*) 100 Unit/Ml Soln, 20 UNIT SC DAILY, #1 VIAL 07/11/17 Metoprolol Tartrate* (Lopressor*) 25 Mg Tab, 25 MG PO DAILY 01/13/13 Discontinued Scripts Hydrocodone/Acetaminophen ([place] 10-325 Tablet) 1 Each Tablet, 1 TAB PO Q6H Y for PAIN, #7 TAB Prov:REANNA LUU MD 07/11/17 Allergies Allergies: Coded Allergies: No Known Allergy (Unverified , 08/10/17) PMhx/Soc History of Surgery: No Anesthesia Reaction: No Hx Neurological Disorder: No Hx Respiratory Disorders: No Hx Cardiac Disorders: Yes (hypertension) Hx Psychiatric Problems: No Hx Miscellaneous Medical Probl: Yes (see PT note) Hx Alcohol Use: No Hx Substance Use: No Hx Tobacco Use: No Physical Exam Vitals Vital Signs Date Time Temp Pulse Resp B/P Pulse Ox O2 Delivery O2 Flow Rate FiO2 08/10/17 19:05 67 16 98 100 08/10/17 18:17 79 20 98/46 08/10/17 17:00 71 16 100 100 08/10/17 16:37 98.4 118 26 108/82 91 Physical Exam General: In respiratory distress, morbidly obese female Head: Normocephalic, atraumatic. Eyes: Pupils equally reactive, EOM intact ENT: Moist mucous membranes Neck: Supple, no lymphadenopathy Respiratory: Tachypnea, respiratory distress, decreased aeration bilaterally Cardiovascular: Tachycardia, no murmurs, rubs, or gallops Abdominal: Soft, non-tender, non-distended, no peritoneal signs : Deferred MSK: No edema, no unilateral swelling, 5/5 strength Neurologic: Patient appears to be confused but moving all extremities and following is very simple commands Skin: No rash Result Diagram: 08/10/17 1750 08/10/17 1839 Results 24 hrs Laboratory Tests Test 08/10/17 17:14 08/10/17 17:50 08/10/17 18:00 08/10/17 18:39 Blood Gas Specimen Source Blood arterial Arterial Blood Date Drawn 08/10/2017 5:42:18 PM Arterial Blood pH (Temp corrected) 6.999 Arterial Blood pCO2 (Temp correct) 27.6mmhg Arterial Blood pO2 (Temp corrected) 153.3mmHG Arterial Blood HCO3 6.6mmol/L Arterial Blood Base Excess -23.4mmol/L Arterial Blood Oxygen Saturation 97.6mmHG Smith Test N/A Arterial Blood Gas Puncture Site LB Arterial Blood Carboxyhemoglobin 0.3% Arterial Blood Methemoglobin 0.6% Blood Gas A-a O2 Differential 532.1mmHg Oxyhemoglobin Percent 96.7% Total Hemoglobin 11.8g/dl Blood Gas Temperature 37.0C Blood Gas Respiration Rate 16.0 Blood Gas Actual Respiration Rate 16 Blood Gas Modality TRACH COLLAR FiO2 100.0% Blood Gas Tidal Volume 500.0mL Blood Gas Critical Value Read Back ESTEFANI COELHO RN Blood Gas Notified Whom ABAIRES Blood Gas Notified Time 08/10/2017 6:02:37 PM White Blood Count 10.410^3/ul Red Blood Count 3.2810^6/ul Hemoglobin 9.7g/dl Hematocrit 32.7% Mean Corpuscular Volume 99.7fl Mean Corpuscular Hemoglobin 29.6pg Mean Corpuscular Hemoglobin Concent 29.7g/dl Red Cell Distribution Width 17.6% Platelet Count 48711^3/UL Mean Platelet Volume 11.0fl Neutrophils % 64.7% Lymphocytes % 27.4% Monocytes % 4.3% Eosinophils % 0.5% Basophils % 0.5% Nucleated Red Blood Cells % 0.0/100WBC Neutrophils # 6.710^3/ul Lymphocytes # 2.910^3/ul Monocytes # 0.410^3/ul Eosinophils # 0.010^3/ul Basophils # 0.010^3/ul Nucleated Red Blood Cells # 0.010^3/ul Urine Color GREEN Urine Clarity TURBID Urine pH 5.0 Urine Specific [place] 1.010 Urine Ketones NEGATIVEmg/dL Urine Nitrite NEGATIVEmg/dL Urine Bilirubin NEGATIVEmg/dL Urine Urobilinogen NEGATIVEmg/dL Urine Leukocyte Esterase 2+Clari/ul Urine Microscopic RBC 69/HPF Urine Microscopic WBC > 182/HPF Urine Squamous Epithelial Cells FEW/HPF Urine Bacteria MANY/HPF Urine Hemoglobin 2+mg/dL Urine Glucose NEGATIVEmg/dL Urine Total Protein 2+mg/dl Prothrombin Time 41.2Sec Prothrombin Time Ratio 3.2 INR International Normalized Ratio 4.20 Activated Partial Thromboplast Time 163.0Sec Sodium Level 159mmol/L Potassium Level 7.8mmol/L Chloride Level 121mmol/L Carbon Dioxide Level < 5mmol/L Anion Gap 41 Blood Urea Nitrogen 184mg/dl Creatinine 17.78mg/dl Glucose Level 146mg/dl Lactic Acid Level 12.7mmol/L Calcium Level 11.0mg/dl Phosphorus Level 13.0mg/dl Magnesium Level 3.0mg/dl Total Bilirubin 0.0mg/dl Direct Bilirubin 0.00mg/dl Indirect Bilirubin 0.0mg/dl Aspartate Amino Transf (AST/SGOT) 361IU/L Alanine Aminotransferase (ALT/SGPT) 251IU/L Alkaline Phosphatase 76IU/L Troponin I 0.075ng/ml Total Protein 5.4g/dl Albumin 2.8g/dl Globulin 2.60g/dl Albumin/Globulin Ratio 1.07 Current Medications Medications (Trade) Dose Ordered Sig/Raghavendra Route PRN Reason Start Time Stop Time Status Last Admin Dose Admin Sodium Chloride (NS) 3,100 ml BOLUS OVER 2 HOURS STAT IV* 08/10/17 16:50 08/10/17 16:54 DC 08/10/17 16:50 Calcium Chloride 1000 mg 1,000 mg STK-MED ONCE .ROUTE 08/10/17 16:56 08/10/17 16:57 DC Norepinephrine (Levophed) 250 ml @ ud STK-MED ONCE .ROUTE 08/10/17 16:58 08/10/17 16:59 DC Rocuronium [place] (Zemuron) 100 mg ONCE STAT IV 08/10/17 17:14 08/10/17 17:16 DC Etomidate (Amidate) 20 mg ONCE STAT IV 08/10/17 17:14 08/10/17 17:16 DC Sodium Chloride (NS) 500 ml ONCE STAT IV* 08/10/17 17:14 08/10/17 17:16 DC 08/10/17 18:09 Fentanyl 25 mcg 25 mcg Q10M PRN IV SEDATION 08/10/17 17:30 Midazolam HCl 50 ml @ 2 mls/hr ONCE IV 08/10/17 17:30 Vecuronium [place] 100 mg/ Dextrose 100 ml @ 6 mls/hr [id number] ONCE IV 08/10/17 17:14 08/11/17 09:53 Norepinephrine 250 ml @ 7.5 mls/hr ONCE STAT IV 08/10/17 18:04 08/12/17 03:23 08/10/17 18:11 Vasopressin 60 unit/Sodium Chloride 60 ml @ 2.4 mls/hr ONCE STAT IV 08/10/17 18:04 08/11/17 19:03 Cefepime HCl 50 ml @ 100 mls/hr ONCE STAT IVPB 08/10/17 18:04 08/10/17 18:33 DC Vancomycin HCl 250 ml @ 125 mls/hr ONCE ONCE IVPB 08/10/17 18:30 08/10/17 20:29 Sodium Chloride (NS) 1,000 ml @ 250 mls/hr Q4H IV 08/10/17 19:00 08/10/17 19:05 Morphine Sulfate (morphine) 2 mg ONCE ONCE IV 08/10/17 19:00 08/10/17 19:03 DC 08/10/17 20:04 Calcium Chloride (Ca Chloride 10% Syg) 1,000 mg ONCE STAT IV 08/10/17 19:48 08/10/17 19:52 DC Procedures/MDM EKG, MONITORS, & DIAGNOSTIC IMAGING: EKG EKG: I reviewed and interpreted a 12-lead EKG. Rhythm: Slight sinus tachycardia Ectopy: None Intervals: No abnormalities ST segments: No elevations or depressions T waves: Peaked T waves Chest x-ray: I reviewed and interpreted a 1 view of the chest Mediastinum: No enlargement Cardiac silhouette: No cardiomegaly Airspace: Opacification of the left hemithorax secondary to endotracheal tube in the right mainstem bronchus Bones: No evidence of fracture Repeat chest x-ray Chest x-ray: I reviewed and interpreted a 1 view of the chest Mediastinum: No enlargement Cardiac silhouette: No cardiomegaly Airspace: Improved aeration of the left hemithorax, endotracheal tube above the davis Bones: No evidence of fracture PROCEDURES: Intubation Note: Indication: Airway protection Consent: This was an emergent situation, implied consent was observed RSI Medications: Etomidate 20 mg, Rocuronium 100 mg Tube size: 7.5 Secured at: 23 at the lip pulled back to 19 Procedure: Endotracheal intubation was performed. The patient was preoxygenated with supplemental oxygen, the room was set up with emergent airway equipment including [id number], suction, adjunct airways. Direct visualization of the cords was performed with direct laryngoscopy using a 4.0 Mac blade, insertion of the endotracheal tube through the cords was visualized by the miter grinder operator. Bilateral breath sounds were auscultated, color change was observed. The tube was then secured in a postintubation chest x-ray was ordered. The patient tolerated the procedure well there were no complications. Central Line Note: Consent: Emergent Indication: Critically ill patient requiring specialized vascular access for fluid or pressor management Location: Right femoral vein Procedure: Sterile procedure was observed throughout insertion of the central line. The insertion site was prepped with sterile solution. Ultrasound-guided identification of the vein was performed. Initial insertion appeared to be arterial, the needle was removed and a second attempt was performed. Direct pressure was applied with no hematoma. Insertion of a needle into the vein was obtained with return of dark, nonpulsatile blood. The wire was then threaded through the needle without complication. The wire was then identified within the vein using ultrasound. A small skin incision was made, the needle was removed intact, dilation of the vein was performed and insertion of a triple lumen catheter was completed. The catheter was then sutured to the skin. All 3 ports monika back and flushed without difficulty. A sterile dressing was applied. The patient tolerated the procedure well there were no complications. Emergency Bedside Ultrasound: The patient was verbally consented prior to procedure and understands the risks , benefits, and alternatives. The patient is agreeable to procedure and has given verbal consent. Indication: Central line Probe Type: Linear Findings: Dynamic ultrasound utilizing compressive technique with both linear and horizontal views, additional images showing wire within the venous system were obtained. The images were saved along with patient information on a paper chart to be scanned into EMR. The patient tolerated the procedure well and there were no complications. LAB INTERPRETATION: Multiple and extensive lab abnormalities are noted including coagulopathy concerning for early DIC, acute renal failure with hyperkalemia hypomagnesemia, hyperphosphatemia, hypercalcemia, lactic acid is significantly elevated MEDICAL DECISION MAKING: Upon arrival the patient was noted to be in respiratory distress. It should be noted that I was with a critical patient who was requiring intubation and resuscitation. I evaluated the patient in the door and immediately called for positive pressure ventilation. I was shortly at the patient's bedside when she had a cardiac arrest. Please see documentation below. Her EKG in the field was resident as an ST elevation myocardial infarction however on my review the patient's EKG did not meet STEMI criteria. Her initial EKG was concerning for hyperkalemia however no olds were readily available. And Dr. Cortes was able to review the EKG and agreed this is not a STEMI. ER COURSE: Again, almost immediately upon placement in the patient's room she had a cardiac arrest. The nurse was at the bedside initiated chest compressions. I directed ACLS per protocol. The patient was being bagged by myself and eventually an airway was obtained as documented above. The patient had multiple rounds of ACLS. She continued to have what appeared to be ventricular fibrillation. Given the concern for hyperkalemia, calcium, bicarbonate were provided. The patient was given 300 mg of amiodarone and had 2 episodes of defibrillation at 200 J. Please see nursing documentation for full code medications and dosing. She did receive a round of epinephrine as well. The patient had return of spontaneous circulation. She had been intubated and the central line was placed as documented above. Hypothermia protocol was initiated. The patient had extensive family in the waiting room. However, it appears that the next of kin was a cousin. They were also accompanied by a hospice printing sales representative who appeared in of the family well. Had a prolonged conversation with the family discussing the patient's status, clinical presentation and likelihood of poor outcome. I discussed goals of care given the fact that there was a report that she was recently initiated on hospice. The family reiterates that the patient would not want prolonged resuscitation efforts and her wishes would be to continue with hospice care. We discussed multiple options including continuing care as well as IV fluids antibiotics pressors etc. as she is currently requiring antibiotics, treatment for hyperkalemia as well as hypothermia protocol and pressors. The family states that they would like to withdraw care and make her comfort measures only. They also reiterated that the patient should be DNR/DNI. This conversation was had with the family most of which spoke Lithuanian and additionally with a public health advisor and hospice individual. In the in the family made the patient DNR, comfort measures and they would like to eventually withdraw care. They would like to have time for further family members to come and see their goodbyes. They do not want a reel blade bender furnace tender. We discussed discontinuing hypothermia protocol, the family does not want antibiotics or further resuscitation efforts. The patient is currently maximized on levo, we will not escalate pressors. The patient did have significant hyperkalemia and to temporize the patient until she could have family see their goodbyes calcium was given. The patient was also given morphine for comfort care. I kept the family informed of laboratory and diagnostic imaging results throughout the emergency room course. DISPOSITION PLAN: Pending ICU placement, anticipation of de-escalation of care and likely palliative extubation. CONSULTATION: Accepting care team and consultations: I discussed the current laboratory data, diagnostic imaging and emergency care provided. Admitting team: Dr. Sommers Admitting team indication: Insurance directed Critical Care Note: Total time: 68 min Indication/Organ System Threat: cardiac arrest as above. I spent the above amount of critical care time with the patient, not including billable procedures. This included chart review, consultations, repeat bedside evaluations, and titration of appropriate medications to prevent cardiopulmonary or respiratory collapse. At this point we are awaiting family members to see their device. Once the family has thereby we will de-escalate care including turning off pressors, given the patient morphine and eventually leading to terminal extubation. The family is agreeable with this plan and understands the patient will likely have rapid decline. Departure Diagnosis: Primary Impression: Cardiac arrest with ventricular fibrillation Additional Impressions: Acute respiratory failure Respiratory failure complication: unspecified whether with hypoxia or hypercapnia Qualified Code: J96.00 - Acute respiratory failure, unspecified whether with hypoxia or hypercapnia Acute renal failure Acute renal failure type: unspecified Qualified Code: N17.9 - Acute renal failure, unspecified acute renal failure type Hyperkalemia Hypercalcemia Lactic acidosis Urinary tract infection Urinary tract infection type: site unspecified Hematuria presence: without hematuria Qualified Code: N39.0 - Urinary tract infection without hematuria, site unspecified DNR (do not resuscitate) Condition: Critical CORAZON BARTLETT MD Aug 10, 2017 20:41
[2017-08-10] MEDS ORDERED: DEXTROSE 5%-0.45% NACL 1,000 ML IV SCH (21:31)
[2017-08-10] MEDS ORDERED: ONDANSETRON 4 MG INJ IV PRN (22:00)
[2017-08-10] MEDS ORDERED: VANCOMYCIN IV PER PHARMACY XX SCH (22:00)
[2017-08-10] MEDS ORDERED: IPRATROPIUM (HFA) 12.9 GM INHALER INH PRN (22:00)
[2017-08-10] MEDS ORDERED: PROPOFOL 100 ML IV SCH (22:00)
[2017-08-10] MEDS ORDERED: NORepinephrine 8MG/250 ML (PMX 250 ML IV SCH (22:00)
[2017-08-10] MEDS ORDERED: ACETAMINOPHEN 650 MG SUPP PR PRN (22:00)
[2017-08-10] MEDS ORDERED: morphine 2 MG INJ IV PRN (22:00)
[2017-08-10] MEDS ORDERED: ALBUTEROL HFA 8 GM INHALER INH PRN (22:00)
[2017-08-10] MEDS ORDERED: LORAZEPAM 2 MG INJ IV PRN (22:00)
[2017-08-10] MEDS ORDERED: CEFEPIME 1GM/50 ML (PMX) 50 ML IVPB SCH (22:00)
--- NOTE | 2017-08-10 22:15 | EN ---
Date/Time of Note Date/Time of Note DATE: 08/10/17 TIME: 22:14 ER Progress Note Patient was undergoing compassionate care while awaiting for bed in the emergency room. She lost pulses and I went in and confirmed time of is 2008. Multiple family members are at bedside and notified them of this. VIKI NEWTON DO Aug 10, 2017 22:15
[2017-08-10 22:50] VITALS: RESP 19
[2017-08-10] MEDS ORDERED: VANCOMYCIN 2 GM in SOD CHLORIDE 0.9% 500 ML IVPB ONE (23:00)
[2017-08-11] MEDS ORDERED: FAMOTIDINE 20 MG INJ IV SCH (09:00)
[2017-08-11] MEDS ORDERED: HEPARIN 5,000 UNIT/0.5 ML VIAL SC SCH (09:00)
== END 2017-08-10 22:09 | disposition expired ==
LOC: E/R 16:28
DX: I49.01 Ventricular fibrillation (principal); I46.2 Cardiac arrest due to underlying cardiac condition; J96.00 Acute respiratory failure, unspecified whether with hypoxia or hypercapnia; N17.9 Acute kidney failure, unspecified; E87.5 Hyperkalemia; E83.52 Hypercalcemia; E87.2 Acidosis; N39.0 Urinary tract infection, site not specified; I10 Essential (primary) hypertension; E11.9 Type 2 diabetes mellitus without complications; Z66 Do not resuscitate; Z79.4 Long term (current) use of insulin; Z79.82 Long term (current) use of aspirin
CPT/HCPCS: 31500; 36415; 36556; 36600; 51702; 71010; 76937; 80053; 81001; 82803; 83605; 83735; 84100; 84484; 85025; 85610; 85730; 87040; 87086; 92950; 93005; 96374; 96375; 99291; C1751; J0171; J0282; J2270; J3370; J3475; J7030; J7040; J7042; 94002